=== PATIENT | female | born 1955 | race Caucasian/White ===

== ENCOUNTER → 2019-02-14 | Outpatient (CLI) | payer BC ==
--- NOTE | 2019-02-14 15:11 | CTL ---
EXAMINATION TYPE: CT Low Dose Lung DATE OF EXAM ORDERED: 02/14/2019 HISTORY: Long-term tobacco use. Lung cancer screening CT DLP: 80.[address] CTDI: 2.3 mGy Automated exposure control for dose reduction was used. SCREENING VISIT: Initial study COMPARISON: None TECHNIQUE: Low dose computed tomography scan was performed through the chest at 1 mm thick sections a nd reconstructed images in the coronal plane at [address] DIAGNOSTIC QUALITY: Satisfactory FINDINGS: LUNG NODULES: Present, detailed below: A 6 x 6 mm superior right lower lobe nodule axial image 151 LUNGS: COPD: Severity: Mild to moderate most prominent in the upper lobes. Fibrosis: Severity: Minimal bibasilar. Lymph nodes: None Other findings: None BILATERAL PLEURAL SPACE: Effusion: None Calcification: None Thickening: None Pneumothorax: None HEART: Heart Size: Mildly enlarged Coronary calcification: Moderate to severe 3 vessel Pericardial effusion: None OTHER FINDINGS: Upper abdomen: None Bony thorax: Mild multilevel spurring in the thoracic spine Supraclavicular region: None. Other: Moderate calcified plaque slightly ectatic descending aorta is noted. IMPRESSION: A just over 6 x 6 mm right lower lobe nodule. FOLLOW UP CT CHEST RECOMMENDATION: 3 month follow-up low-dose lung screening CT. CT LUNG RAD: Lung-Rad 4AS Suspicious Correlate clinically for additional cardiac risk factors as moderate to severe 3 vessel coronary mio ry calcification is present.
== END | disposition home or self-care (01) ==
LOC: RADCTMAIN 13:45
PROVIDERS: ATTEND Family Medicine
DX: Z12.2 Encounter for screening for malignant neoplasm of respiratory organs (principal); R91.1 Solitary pulmonary nodule; F17.210 Nicotine dependence, cigarettes, uncomplicated

== ENCOUNTER → 2019-03-06 | Outpatient (CLI) | payer BC ==
--- NOTE | 2019-03-06 16:25 | BD ---
EXAMINATION TYPE: Axial Bone Density DATE OF EXAM: 03/06/2019 COMPARISON: NONE CLINICAL HISTORY: post menopausal Height: 5'3 Weight: 156 FRAX RISK QUESTIONS: Secondary Osteoporosis: Current Tobacco Use: y RISK FACTORS HISTORY OF: Active: n Diet low in dairy products/other sources of calcium: y Postmenopausal woman: y MEDICATIONS: Additional Medications: blood pressure, cholesterol, anxiety Additional History: EXAM MEASUREMENTS: Bone mineral densitometry was performed using the [employer] System. Bone mineral density as measured about the Lumbar spine is: ----- L1-L4(G/cm2): 1.092 T Score Values are as follows: ----- L2: -0.9 ----- L3: 0.0 ----- L4: -1.1 ----- L1-L4: -0.7 Bone mineral density about the R hip (g/cm2): 0.759 Bone mineral density about the L hip (g/cm2): 0.715 T Score values are as follows: -----R Neck: -2.0 -----L Neck: -2.3 -----R Total: -2.0 -----L Total: -1.9 IMPRESSION: Osteopenia (T Score between -2.5 and -1). There is slightly increased risk of fracture and the patient may be considered for treatment. Re-Screen 2-5 years. NOTE: T-SCORE=SD OF THE YOUNG ADULT MEAN.
--- NOTE | 2019-03-07 12:23 | MM ---
Reason for exam: screening (asymptomatic). Last mammogram was performed 2 years and 4 months ago. History: Patient is postmenopausal. Benign excisional biopsy of the right breast, 1992. Took hormonal contraceptives for 5 years beginning at age 20. Physical Findings: A clinical breast exam by your physician is recommended on an annual basis and results should be correlated with mammographic findings. MG Screening Mammo w CAD Bilateral CC and MLO view(s) were taken. Prior study comparison: November 05, 2016, bilateral MG screening mammo w CAD. August 14, 2014, bilateral MG screening mammo w CAD. The breast tissue is heterogeneously dense. This may lower the sensitivity of mammography. Stable benign calcifications. There is chronic nodularity bilaterally. No significant changes when compared with prior studies. ASSESSMENT: Benign, BI-RAD 2 RECOMMENDATION: Routine screening mammogram of both breasts in 1 year.
== END | disposition home or self-care (01) ==
LOC: RADMAMWWP 12:51
PROVIDERS: ATTEND Family Medicine
DX: Z12.31 Encounter for screening mammogram for malignant neoplasm of breast (principal); M85.88 Other specified disorders of bone density and structure, other site; Z78.0 Asymptomatic menopausal state
CPT/HCPCS: 77067; 77080

== ENCOUNTER → 2019-03-16 | Outpatient (CLI) | payer BC ==
[2019-03-16 10:12] LABS: HCT 46.6 % (34.0-46.0); MCH 31.5 pg (25.0-35.0); MCHC 32.2 g/dL (31.0-37.0); MCV 97.9 fL (80.0-100.0); Mean Platelet Volume 7.5; Platelet Count 438 k/uL (150-450); RBC 4.76 m/uL (3.80-5.40); RDW 14.8 % (11.5-15.5); WBC 9.2 k/uL (3.8-10.6)
[2019-03-16 18:41] LABS: Anion Gap 9.2 mmol/L (4.00-12.00); Carbon Dioxide 26.8 mmol/L (21.6-31.8); Potassium 5.2 mmol/L (3.5-5.5)
== END | disposition home or self-care (01) ==
LOC: LABWHC1 09:02
PROVIDERS: ATTEND Internal Medicine Interventional Cardiology
DX: Z01.812 Encounter for preprocedural laboratory examination (principal); I25.10 Atherosclerotic heart disease of native coronary artery without angina pectoris
CPT/HCPCS: 36415; 80051; 82565; 84520; 85027

== ENCOUNTER 2019-03-20 07:58 | Day surgery (SDC) | payer BC ==
[2019-03-16 12:34] VITALS: BMI 28.6
[2019-03-20] MEDS ORDERED: SODIUM CHLORIDE 0.9% 1,000 ML in EMPTY BAG 1 BAG IV ONE (08:11)
[2019-03-20] MEDS ORDERED: ASPIRIN 325 MG TAB PO STA (08:11)
[2019-03-20] MEDS ORDERED: NITROGLYCERIN SL TABS 0.4 MG TAB SUBLINGUAL PRN ×2 (08:11→11:07)
[2019-03-20] MEDS ORDERED: ATORVASTATIN 80 MG TAB PO STA (08:11)
[2019-03-20] MEDS ORDERED: ALPRAZolam 0.5 MG TAB PO PRN (08:11)
[2019-03-20] MEDS: ALPRAZolam 0.25 MG TAB PO PRN ×2 (08:25→22:34)
[2019-03-20] MEDS ORDERED: ALPRAZolam 0.25 MG TAB PO ONE (08:36)
[2019-03-20] MEDS ORDERED: VERAPAMIL 2.5 MG/ML 2 ML AMP ONE (09:00)
[2019-03-20] MEDS ORDERED: LIDOCAINE 1% INJ 10MG/ML (20 ML MDV) ONE (09:00)
[2019-03-20] MEDS ORDERED: HEPARIN SODIUM 1,000 UN/ML (10ML VL) ONE (09:00)
[2019-03-20] MEDS ORDERED: fentaNYL (PF) 50 MCG/ML 2 ML AMP ONE (09:00)
[2019-03-20] MEDS ORDERED: fentaNYL (PF) 50 MCG/ML 2 ML AMP IV ONE (09:08)
[2019-03-20] MEDS ORDERED: MIDAZOLAM (PF) 2 MG/2 ML VIAL IV ONE (09:37)
[2019-03-20] MEDS ORDERED: LIDOCAINE 1% INJ 10MG/ML (20 ML MDV) SQ ONE (09:37)
[2019-03-20] MEDS ORDERED: VERAPAMIL SYRINGE (5 MG/10 ML) INTRAARTER ONE (09:40)
[2019-03-20] MEDS ORDERED: CLOPIDOGREL 75 MG TAB ONE ×3 (09:53)
[2019-03-20] MEDS ORDERED: CLOPIDOGREL 75 MG TAB PO ONE (09:58)
[2019-03-20] MEDS ORDERED: IOPAMIDOL-370 150ML BTL INJ ONE (10:22)
[2019-03-20] MEDS: NITROGLYCERIN 1000MCG/10ML SYRINGE INTRACORON ONE ×2 (10:32→10:44)
[2019-03-20] MEDS ORDERED: IOPAMIDOL-370 100ML BTL INJ ONE (10:45)
[2019-03-20] MEDS ORDERED: ATROPINE SULFATE 0.1 MG/ML 10ML SYRINGE IV PRN (11:07)
[2019-03-20] MEDS ORDERED: MAG HYDROX/AL HYDROX/SIMETH 30 ML CUP PO PRN (11:07)
[2019-03-20] MEDS ORDERED: ZOLPIDEM 5 MG TAB PO PRN (11:07)
[2019-03-20] MEDS ORDERED: RX INFO: IV CONTRAST WAS GIVEN 1 EACH MISC MISCELLANE PRN (11:07)
--- NOTE | 2019-03-20 11:22 | CC ---
CARDIAC CATHETERIZATION REPORT Mrs. Perez is a 63-year-old female with known history of hypertension, hyperlipidemia, chronic tobacco use, who has been complaining of worsening dyspnea on exertion, was found to have significant calcification on CAT scan of the chest and underwent stress test that revealed evidence of inducible ischemia involving the anteroapical wall. In view of that, recommendation was made regarding cardiac catheterization. The procedure as well as the risks and the complications were discussed with the patient who is in full understanding and agreement. PROCEDURE: Patient was brought to label folder in a fasting semi-sedated state after receiving fentanyl and Benadryl and achieving moderate conscious sedated state. Using Xylocaine anesthesia in the Seldinger technique, a 6-Maltese sheath was introduced in the right radial artery. Selective right and left coronary angiography performed using 5-Maltese 3.5 bend right and left Ant catheter. Multiple views of the coronary artery including hemiaxial views obtained. Following that, angioplasty and stenting was performed. Following that, a 5-Maltese tight pigtail catheter was introduced in the left ventricle and pressures were calculated. Following that, catheter and sheath were removed. Hemostasis was obtained with deployment of a TR band. There was no immediate complication patient was returned to room in stable condition. Of note the patient received 4000 units of intravenous heparin as well as intra- arterial verapamil. FINDINGS: FLUOROSCOPY: There is severe calcification involving all the coronary arteries. LEFT MAIN: This is a large-sized vessel bifurcating left circumflex, left anterior descending artery. Left main coronary artery has a 20% plaque distally. LEFT ANTERIOR DESCENDING ARTERY: This vessel gives rise to a very large first diagonal branch, very proximal that has a 40% plaque proximally. The LAD beyond that in the proximal segment has a 20% plaque. After the takeoff of the first septal salesperson burial plots, the vessel is totally occluded with minimal antegrade flow. LEFT CIRCUMFLEX: This is a large-sized vessel, nondominant, giving rise to a large obtuse marginal branch. The left circumflex has tubular lesion proximally of 20% to 30% without any evidence of high-grade stenosis. RIGHT CORONARY ARTERY: This is a large dominant vessel, bifurcating distally PDA and posterolateral segment branches. The mid segment of the right coronary artery has a 30% plaque. The vessel is calcified, gives collaterals to the LAD through the acute marginal branch and the septal salesperson burial plots. LEFT VENTRICULOGRAM: Left ventriculogram was not performed. HEMODYNAMICS: There was no gradient across the aortic valve. The left ventricular end- diastolic pressure was 12 mmHg. CONCLUSION: 1. Calcified coronary arteries. 2. 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 3. Mild disease in the right coronary artery and the left circumflex. RECOMMENDATION: In view of finding anatomy, I recommend to proceed with attempt to angioplasty and stenting of the LAD. The procedure as well as risks and the complications were discussed with the patient who is in full understanding and agreement. MMYONATHAN / MAGGIEN: [id number] /
--- NOTE | 2019-03-20 11:37 | PTCA ---
PERCUTANEOUSTRANS CORORONARY ANGIOGRAPHY Mrs. Perez is a 63-year-old female with a known history of hypertension, hyperlipidemia, chronic tobacco use, who presented with an abnormal myocardial perfusion imaging, underwent cardiac catheterization, was found to have a totally occluded mid LAD. In view of that, recommendation was made regarding angioplasty and stenting. The procedure as well s the risks and the complications were discussed with the patient who is in full understanding and agreement. PROCEDURE: A 6-Malaysian FL 3.5 guiding catheter introduced in the system. After getting cannulating the left main, multiple attempts to advance a 0.014 balanced medium weight J-wire with cross to the proximal LAD were unsuccessful because of the acute angulation. At that point, a SuperCross 45 degree was advanced and that was unsuccessful in helping advancing the wire. The catheter was removed and a SuperCross 120 degree band was advanced with a BMW J-wire and the wire was advanced into the LAD. At that point, the SuperCross catheter was removed and a Corsair catheter was advanced over the BMW. Attempts to advance the BMW through the total occlusion were unsuccessful. At that point that wire was removed and a 0.014 whisper J-wire was advanced and was able to cross the total occlusion. Following that, the Corsair catheter was removed and a 1.2 x 12 mm Trek balloon was advanced and multiple inflations maximum of 10 atmospheres were done. Following that, the balloon was advanced to the distal vessel and the wire was exchanged through the balloon to a 0.014 balanced medium weight J-wire. Subsequently the balloon was removed and a 2.0 x 15 mm Trek balloon was advanced and multiple inflations maximum of 8 atmospheres were done. Following that the balloon was removed and a 2.25 x 33 mm Xience Kaylin stent was deployed, post dilated at 16 atmospheres. After the last inflation, after appropriate wait, the balloon and the guidewire were withdrawn back in the guiding catheter. Images were obtained, repeated. Those images reveal stable successful stenting. At that point, the guiding catheter, the balloon and the guidewire were removed. Left ventricular end-diastolic pressure was calculated. Following that, the sheath and the catheter were removed. Hemostasis was obtained with deployment of a TR band. There was no immediate complication. Patient was returned to her room in stable condition. Of note, the patient had no chest discomfort or significant EKG changes. She received an additional 5000 units of intravenous heparin. Her ACT was monitored and she received oral loading dose of clopidogrel. RESULTS: Successful stenting of a chronically totally occluded LAD with reduction of stenosis from 100% to 0%. RECOMMENDATION: Patient will be continued on aspirin, Plavix, beta rene, NICANOR inhibitor, and statin. The importance of dual antiplatelet treatment was discussed with the patient and her family who are in full understanding and agreement. Duration of procedure is 74 minutes. MMYONATHAN / MAGGIEN: [id number] /
[2019-03-20] MEDS: SODIUM CHLORIDE 0.9% 1,000 ML IV SCH (16:23)
[2019-03-20] MEDS ORDERED: ATORVASTATIN 80 MG TAB PO SCH (21:00)
[2019-03-20] MEDS: METOPROLOL TARTRATE 50 MG TAB PO SCH (21:12)
[2019-03-20] MEDS: CLOBETASOL PROP 0.05% CR 15GM TOPICAL SCH (21:12)
[2019-03-21] MEDS: SODIUM CHLORIDE 0.9% 1,000 ML IV SCH (05:13)
[2019-03-21 05:15] VITALS: BP 126/79
[2019-03-21 06:38] LABS: Anion Gap 6 mmol/L; Blood Urea Nitrogen 12 mg/dL (7-17); Calcium 9.5 mg/dL (8.4-10.2); Carbon Dioxide 27 mmol/L (22-30); Chloride 102 mmol/L (98-107); Glucose 93 mg/dL (74-99); Potassium 4.1 mmol/L (3.5-5.1); Sodium 135 mmol/L (137-145)
[2019-03-21] MEDS: METOPROLOL TARTRATE 50 MG TAB PO SCH (08:15)
[2019-03-21] MEDS ORDERED: CITALOPRAM HYDROBROMIDE 20 MG TAB PO SCH (09:00)
[2019-03-21] MEDS ORDERED: ASPIRIN 81 MG PO SCH (09:00)
[2019-03-21] MEDS ORDERED: LISINOPRIL-HCTZ 20-25 MG 1 EACH TAB PO SCH (09:00)
[2019-03-21] MEDS: CLOBETASOL PROP 0.05% CR 15GM TOPICAL SCH (09:06)
[2019-03-21 09:20] VITALS: PULSE 67; RESP 18; TEMP 98.1
--- NOTE | 2019-03-21 09:20 | PN ---
PROGRESS NOTE Mrs. Perez is a 63-year-old female who has a history of chronic tobacco use, history of hyperlipidemia, had an abnormal myocardial perfusion imaging, underwent cardiac catheterization, was found to have a totally occluded LAD, underwent is recannulization of that vessel and stenting. She is feeling well today. Her breathing is stable. She is denying any chest pain. No dizziness or palpitation. No nausea. She continues to be on aspirin once a day, Plavix 75 mg daily, Lipitor 80 mg daily, lisinopril HCT 20/25 mg daily, metoprolol tartrate 100 mg twice a day. PHYSICAL EXAMINATION: Blood pressure 126/70 with the heart rate in the 60s. LUNGS: Clear. HEART: Regular rate and rhythm. S1, S2. No S3. No rub. ABDOMEN: Soft, nontender. EXTREMITIES: No edema. Right radial pulse intact. LAB DATA: Lab data revealed a BUN and creatinine 12 and 0.63. Potassium 4.1. EKG with no acute changes. IMPRESSION: 1. Status post stenting of the totally occluded left anterior descending artery. 2. Hypertension. 3. Hyperlipidemia. 4. Chronic tobacco use. RECOMMENDATION: Patient should be able to be discharged home today and followed as an outpatient. MMODL / IJN: [id number] /
[2019-03-21] MEDS ORDERED: CLOPIDOGREL 75 MG TAB PO SCH (11:08)
== END 2019-03-21 09:20 | disposition home or self-care (01) ==
LOC: CATHCVL 07:58 → 3SCARD 12:56 → CATHCVL 03-21 09:20
PROVIDERS: ATTEND Internal Medicine Interventional Cardiology
DX: I25.10 Atherosclerotic heart disease of native coronary artery without angina pectoris (principal); I25.84 Coronary atherosclerosis due to calcified coronary lesion; I25.82 Chronic total occlusion of coronary artery; I10 Essential (primary) hypertension; F17.210 Nicotine dependence, cigarettes, uncomplicated; E78.2 Mixed hyperlipidemia; Z79.82 Long term (current) use of aspirin; Z79.899 Other long term (current) drug therapy
CPT/HCPCS: 93458; 80048; C9600; C1769 ×3; C1887 ×3; C1894; C1725 ×2; C1874; J2001; J3010; J1644; Q9967 ×2; J2250

== ENCOUNTER 2019-03-23 20:04 | Inpatient (IN) | payer BC ==
[2019-03-23] MEDS ORDERED: SODIUM CHLORIDE 0.9% 500 ML 500 ML IV STA (20:33)
[2019-03-23] MEDS ORDERED: ONDANSETRON 4 MG/2 ML VIAL IVP STA (20:33)
[2019-03-23 21:44] LABS: Basophils % (A) 0 %; Eosinophils # (A) 0.2 k/uL (0-0.7); Eosinophils % (A) 2 %; HCT 46.5 % (34.0-46.0); HGB 15.6 gm/dL (11.4-16.0); Lymphocytes # (A) 1.1 k/uL (1.0-4.8); Lymphocytes % (A) 10 %; MCH 30.8 pg (25.0-35.0); MCHC 33.6 g/dL (31.0-37.0); Mean Platelet Volume 7.1; Monocytes # (A) 0.5 k/uL (0-1.0); Monocytes % (A) 4 %; Neutrophils # (A) 9.8 k/uL (1.3-7.7); Neutrophils % (A) 83 %; Platelet Count 395 k/uL (150-450); RBC 5.06 m/uL (3.80-5.40); RDW 13.8 % (11.5-15.5); WBC 11.7 k/uL (3.8-10.6)
[2019-03-23 21:46] LABS: MCV 91.8 fL (80.0-100.0)
[2019-03-23 21:59] LABS: ALT 24 U/L (9-52); AST 35 U/L (14-36); Albumin 4.5 g/dL (3.5-5.0); Alkaline Phosphatase 108 U/L (38-126); Amylase 61 U/L (30-110); Anion Gap 11 mmol/L; Blood Urea Nitrogen 7 mg/dL (7-17); Calcium 9.5 mg/dL (8.4-10.2); Carbon Dioxide 27 mmol/L (22-30); Chloride 81 mmol/L (98-107); Glucose 109 mg/dL (74-99); Lipase 35 U/L (23-300); Potassium 3.9 mmol/L (3.5-5.1); Total Bilirubin 0.9 mg/dL (0.2-1.3); Total Protein 7.1 g/dL (6.3-8.2)
[2019-03-23 22:06] LABS: Sodium 119 mmol/L (137-145)
--- NOTE | 2019-03-23 22:16 | ED ---
General Adult HPI - General Source: patient Mode of arrival: ambulatory Limitations: no limitations <Krystina Marin - Last Filed: 03/24/19 01:22> <Miugel Izaguirre - Last Filed: 03/25/19 08:22> - General Chief complaint: Nausea/Vomiting/Diarrhea Stated complaint: Weakness Time Seen by Provider: 03/23/19 20:15 - History of Present Illness Initial comments: 63-year-old female patient presents to the emergency department today for evaluation of nausea and vomiting. Patient had a stent placed in her LAD 3 days ago. Patient states she has been feeling unwell since the procedure. States that she has had nausea. States she did start vomiting today. States that she has also felt generalized weakness. Patient did start new medications including Plavix, aspirin, and atorvastatin. Patient denies any chest pain or trouble breathing. She denies any abdominal pain, constipation, or diarrhea. She denies any numbness or tingling to her extremities. Denies any dizziness. Patient denies any recent rash, fever, chills, back pain, numbness, tingling, dizziness, weakness, hematuria, dysuria, urinary urgency, urinary frequency, headache, visual changes, or any other complaints. (Krystina Marin) - Related Data Home Medications Medication Instructions Recorded Confirmed Aspirin 81 mg PO DAILY 09/09/14 03/23/19 Citalopram Hydrobromide [CeleXA] 20 mg PO QAM 09/09/14 03/23/19 Metoprolol Tartrate [Lopressor] 100 mg PO BID 09/09/14 03/23/19 Clobetasol Propionate [Temovate 1 applic TOPICAL BID 03/16/19 03/23/19 0.05% Cream] Lisinopril-Hctz 20-25 mg 1 tab PO DAILY 03/20/19 03/23/19 [Zestoretic 20-25] Previous Rx's Medication Instructions Recorded Atorvastatin [Lipitor] 80 mg PO HS #90 tab 03/21/19 Clopidogrel [Plavix] 75 mg PO DAILY #90 tab 03/21/19 Nitroglycerin Sl Tabs [Nitrostat] 0.4 mg SUBLINGUAL Q5M PRN #25 tab 03/21/19 Allergies Allergy/AdvReac Type Severity Reaction Status Date / Time No Known Allergies Allergy Verified 03/23/19 20:18 Review of Systems ROS Other: All systems not noted in ROS Statement are negative. <Krystina Marin - Last Filed: 03/24/19 01:22> ROS Other: All systems not noted in ROS Statement are negative. <Miguel Izaguirre - Last Filed: 03/25/19 08:22> ROS Statement: Those systems with pertinent positive or pertinent negative responses have been documented in the HPI. Past Medical History Past Medical History: Hyperlipidemia, Hypertension, Skin Disorder Additional Past Medical History / Comment(s): postive stress test. LICHEN SCLEROSIS History of Any Multi-Drug Resistant Organisms: None Reported Past Surgical History: Adenoidectomy, Bladder Surgery, Heart Catheterization With Stent, Tonsillectomy Additional Past Surgical History / Comment(s): EYE SX A CHILD. BENIGN LUMP REMOVED FROM RIGHT SIDE OF NECK. BENIGN RT BREAST MASS REMOVED. COLONOSCOPY Past Anesthesia/Blood Transfusion Reactions: No Reported Reaction Past Psychological History: Anxiety Smoking Status: Current every day smoker Past Alcohol Use History: Rare Past Drug Use History: None Reported - Past Family History Father Family Medical History: Cancer <Krystina Marin - Last Filed: 03/24/19 01:22> General Exam Limitations: no limitations General appearance: alert, in no apparent distress, other (This is a well- developed, well-nourished adult female patient in no acute distress. Vital sign s upon presentation are pulse 84, respirations 20, blood pressure 175/81, pulse ox 95% on room air.) Eye exam: Present: normal appearance, PERRL, EOMI. Absent: scleral icterus, conjunctival injection, periorbital swelling ENT exam: Present: normal exam, normal oropharynx, mucous membranes moist Respiratory exam: Present: normal lung sounds bilaterally. Absent: respiratory distress, wheezes, rales, rhonchi, stridor Cardiovascular Exam: Present: regular rate, normal rhythm, normal heart sounds. Absent: systolic murmur, diastolic murmur, rubs, gallop, clicks GI/Abdominal exam: Present: soft, normal bowel sounds. Absent: distended, tenderness, guarding, rebound, rigid Neurological exam: Present: alert, oriented X3, CN II-XII intact, other ( Strength in all 4 extremities is 5/5.) Psychiatric exam: Present: normal affect, normal mood Skin exam: Present: warm, dry, intact, normal color. Absent: rash <Krystina Marin - Last Filed: 03/24/19 01:22> Course Vital Signs 03/23/19 03/23/19 03/23/19 20:06 21:11 22:54 Temperature 98.6 F Pulse Rate 84 66 Respiratory 20 20 18 Rate Blood Pressure 175/81 167/86 O2 Sat by Pulse 95 98 96 Oximetry 03/23/19 03/24/19 23:46 01:12 Temperature Pulse Rate 72 Respiratory 18 Rate Blood Pressure 147/79 112/68 O2 Sat by Pulse 99 Oximetry EKG Findings - EKG Comments: EKG Findings:: EKG obtained at 2146 shows normal sinus rhythm with a ventricular rate of 66, NC interval 168, QRS duration 76, QT 414, QTC 434. No evidence of ST elevation or depression. <Krystina Marin - Last Filed: 03/24/19 01:22> Medical Decision Making - Lab Data Result diagrams: 03/23/19 21:30 03/23/19 23:03 <Krystina Marin - Last Filed: 03/24/19 01:22> - Lab Data Result diagrams: 03/23/19 21:30 03/24/19 15:59 <Miguel Izaguirre - Last Filed: 03/25/19 08:22> - Medical Decision Making 63-year-old female patient presents to the emergency department today for evaluation of vomiting and weakness. Physical examination is relatively unremarkable. She is neurologically intact with no focal deficits. Abdomen is soft and nontender. Labs reviewed and did reveal sodium of 119. This was confirmed with a repeat test with a result of 120. Patient does admit to use of Lisinopril/Hctz. Denies any excessive water intake. Patient denies history of low sodium. She will be admitted for sodium correction. Neuro checks will be ordered. Troponin is elevated, she did have the stent placed on Tuesday, we will perform serial trops to rule out acute event. EKG was unremarkable. Patient was informed of all results and plan. She is agreeable. (Krystina Marin) I saw this patient in conjunction with the physician retail event assistant. I performed independent history and physical exam. Agree with case management. (Jb Izaguirre ) - Lab Data Lab Results 03/23/19 03/23/19 03/23/19 Range/Units 21:30 21:30 21:30 WBC 11.7 H (3.8-10.6) k/uL RBC 5.06 (3.80-5.40) m/uL Hgb 15.6 (11.4-16.0) gm/dL Hct 46.5 H (34.0-46.0) % MCV 91.8 D (80.0-100.0) fL MCH 30.8 (25.0-35.0) pg MCHC 33.6 (31.0-37.0) g/dL RDW 13.8 (11.5-15.5) % Plt Count 395 (150-450) k/uL Neutrophils % 83 % Lymphocytes % 10 % Monocytes % 4 % Eosinophils % 2 % Basophils % 0 % Neutrophils # 9.8 H (1.3-7.7) k/uL Lymphocytes # 1.1 (1.0-4.8) k/uL Monocytes # 0.5 (0-1.0) k/uL Eosinophils # 0.2 (0-0.7) k/uL Basophils # 0.0 (0-0.2) k/uL Sodium 119 L* (137-145) mmol/L Potassium 3.9 (3.5-5.1) mmol/L Chloride 81 L (98-107) mmol/L Carbon Dioxide 27 (22-30) mmol/L Anion Gap 11 mmol/L BUN 7 (7-17) mg/dL Creatinine 0.54 (0.52-1.04) mg/dL Est GFR (CKD-EPI)AfAm >90 (>60 ml/min/1.73 sqM) Est GFR (CKD-EPI)NonAf >90 (>60 ml/min/1.73 sqM) Glucose 109 H (74-99) mg/dL Uric Acid (3.7-7.4) mg/dL Calcium 9.5 (8.4-10.2) mg/dL Total Bilirubin 0.9 (0.2-1.3) mg/dL AST 35 (14-36) U/L ALT 24 (9-52) U/L Alkaline Phosphatase 108 (38-126) U/L Troponin I 0.070 H* (0.000-0.034) ng/mL Total Protein 7.1 (6.3-8.2) g/dL Albumin 4.5 (3.5-5.0) g/dL Amylase 61 (30-110) U/L Lipase 35 (23-300) U/L TSH (0.465-4.680) mIU/L Cortisol ug/dL Urine Color Urine Appearance (Clear) Urine pH (5.0-8.0) Ur Specific [place] (1.001-1.035) Urine Protein (Negative) Urine Glucose (UA) (Negative) Urine Ketones (Negative) Urine Blood (Negative) Urine Nitrite (Negative) Urine Bilirubin (Negative) Urine Urobilinogen (<2.0) mg/dL Ur Leukocyte Esterase (Negative) Urine Osmolality (50-1400) mosm/kg Ur Random Creatinine mg/dL Ur Random Urea Nitrogn mg/dL 03/23/19 03/23/19 03/23/19 Range/Units 23:03 23:03 23:55 WBC (3.8-10.6) k/uL RBC (3.80-5.40) m/uL Hgb (11.4-16.0) gm/dL Hct (34.0-46.0) % MCV (80.0-100.0) fL MCH (25.0-35.0) pg MCHC (31.0-37.0) g/dL RDW (11.5-15.5) % Plt Count (150-450) k/uL Neutrophils % % Lymphocytes % % Monocytes % % Eosinophils % % Basophils % % Neutrophils # (1.3-7.7) k/uL Lymphocytes # (1.0-4.8) k/uL Monocytes # (0-1.0) k/uL Eosinophils # (0-0.7) k/uL Basophils # (0-0.2) k/uL Sodium 120 L (137-145) mmol/L Potassium 3.8 (3.5-5.1) mmol/L Chloride 86 L (98-107) mmol/L Carbon Dioxide 23 (22-30) mmol/L Anion Gap 11 mmol/L BUN 7 (7-17) mg/dL Creatinine 0.47 L (0.52-1.04) mg/dL Est GFR (CKD-EPI)AfAm >90 (>60 ml/min/1.73 sqM) Est GFR (CKD-EPI)NonAf >90 (>60 ml/min/1.73 sqM) Glucose 101 H (74-99) mg/dL Uric Acid 3.3 L (3.7-7.4) mg/dL Calcium 9.1 (8.4-10.2) mg/dL Total Bilirubin 0.8 (0.2-1.3) mg/dL AST 33 (14-36) U/L ALT 24 (9-52) U/L Alkaline Phosphatase 104 (38-126) U/L Troponin I (0.000-0.034) ng/mL Total Protein 6.7 (6.3-8.2) g/dL Albumin 4.2 (3.5-5.0) g/dL Amylase (30-110) U/L Lipase (23-300) U/L TSH 3.310 (0.465-4.680) mIU/L Cortisol 12 ug/dL Urine Color Light Yellow Urine Appearance Clear (Clear) Urine pH 7.0 (5.0-8.0) Ur Specific [place] 1.006 (1.001-1.035) Urine Protein Negative (Negative) Urine Glucose (UA) Negative (Negative) Urine Ketones Negative (Negative) Urine Blood Negative (Negative) Urine Nitrite Negative (Negative) Urine Bilirubin Negative (Negative) Urine Urobilinogen <2.0 (<2.0) mg/dL Ur Leukocyte Esterase Negative (Negative) Urine Osmolality (50-1400) mosm/kg Ur Random Creatinine mg/dL Ur Random Urea Nitrogn mg/dL 03/23/19 03/23/19 Range/Units 23:55 23:55 WBC (3.8-10.6) k/uL RBC (3.80-5.40) m/uL Hgb (11.4-16.0) gm/dL Hct (34.0-46.0) % MCV (80.0-100.0) fL MCH (25.0-35.0) pg MCHC (31.0-37.0) g/dL RDW (11.5-15.5) % Plt Count (150-450) k/uL Neutrophils % % Lymphocytes % % Monocytes % % Eosinophils % % Basophils % % Neutrophils # (1.3-7.7) k/uL Lymphocytes # (1.0-4.8) k/uL Monocytes # (0-1.0) k/uL Eosinophils # (0-0.7) k/uL Basophils # (0-0.2) k/uL Sodium (137-145) mmol/L Potassium (3.5-5.1) mmol/L Chloride (98-107) mmol/L Carbon Dioxide (22-30) mmol/L Anion Gap mmol/L BUN (7-17) mg/dL Creatinine (0.52-1.04) mg/dL Est GFR (CKD-EPI)AfAm (>60 ml/min/1.73 sqM) Est GFR (CKD-EPI)NonAf (>60 ml/min/1.73 sqM) Glucose (74-99) mg/dL Uric Acid (3.7-7.4) mg/dL Calcium (8.4-10.2) mg/dL Total Bilirubin (0.2-1.3) mg/dL AST (14-36) U/L ALT (9-52) U/L Alkaline Phosphatase (38-126) U/L Troponin I (0.000-0.034) ng/mL Total Protein (6.3-8.2) g/dL Albumin (3.5-5.0) g/dL Amylase (30-110) U/L Lipase (23-300) U/L TSH (0.465-4.680) mIU/L Cortisol ug/dL Urine Color Urine Appearance (Clear) Urine pH (5.0-8.0) Ur Specific [place] (1.001-1.035) Urine Protein (Negative) Urine Glucose (UA) (Negative) Urine Ketones (Negative) Urine Blood (Negative) Urine Nitrite (Negative) Urine Bilirubin (Negative) Urine Urobilinogen (<2.0) mg/dL Ur Leukocyte Esterase (Negative) Urine Osmolality 207 (50-1400) mosm/kg Ur Random Creatinine 32.5 mg/dL Ur Random Urea Nitrogn 178.0 mg/dL Disposition Decision to Admit Reason: Admit from EC Decision Date: 03/24/19 Decision Time: 00:59 <Krystina Marin - Last Filed: 03/24/19 01:22> <Miguel Izaguirre - Last Filed: 03/25/19 08:22> Clinical Impression: Hyponatremia, Nausea Disposition: ADMITTED IP TO THIS [facility] Condition: Serious
[2019-03-23 23:40] LABS: ALT 24 U/L (9-52); AST 33 U/L (14-36); Albumin 4.2 g/dL (3.5-5.0); Alkaline Phosphatase 104 U/L (38-126); Anion Gap 11 mmol/L; Blood Urea Nitrogen 7 mg/dL (7-17); Calcium 9.1 mg/dL (8.4-10.2); Carbon Dioxide 23 mmol/L (22-30); Chloride 86 mmol/L (98-107); Glucose 101 mg/dL (74-99); Potassium 3.8 mmol/L (3.5-5.1); Sodium 120 mmol/L (137-145); Total Bilirubin 0.8 mg/dL (0.2-1.3); Total Protein 6.7 g/dL (6.3-8.2)
[2019-03-24 00:02] LABS: Appearance,Urine Clear (Clear); Bilirubin,Urine Negative (Negative); Blood,Urine Negative (Negative); Color,Urine Light Yellow; Glucose,Urine (UA) Negative (Negative); Ketones,Urine Negative (Negative); Leukocyte Esterase,Urine Negative (Negative); Nitrite,Urine Negative (Negative); Protein,Urine Negative (Negative); Specific Gravity,Urine 1.006 (1.001-1.035); Urobilinogen,Urine <2.0 mg/dL (<2.0)
[2019-03-24] MEDS ORDERED: NALOXONE 0.4 MG/ML 1 ML VIAL IV PRN (00:38)
[2019-03-24 01:09] LABS: Uric Acid 3.3 mg/dL (3.7-7.4)
[2019-03-24] MEDS: SODIUM CHLORIDE 0.9% 1,000 ML IV SCH ×6 (01:09→21:46)
[2019-03-24] MEDS ORDERED: ONDANSETRON 4 MG/2 ML VIAL IVP PRN (01:20)
[2019-03-24 01:27] LABS: Creatinine,Urine Random 32.5 mg/dL
[2019-03-24 16:41] LABS: Anion Gap 4 mmol/L; Blood Urea Nitrogen 5 mg/dL (7-17); Carbon Dioxide 26 mmol/L (22-30); Chloride 105 mmol/L (98-107); Glucose 91 mg/dL (74-99); Potassium 4.7 mmol/L (3.5-5.1); Sodium 135 mmol/L (137-145)
[2019-03-24] MEDS: CLOPIDOGREL 75 MG TAB PO SCH (18:05)
[2019-03-24] MEDS: LISINOPRIL 10 MG TAB PO SCH ×2 (18:17→20:09)
--- NOTE | 2019-03-24 19:51 | CONS ---
CONSULTATION Mrs. Perez is a 63-year-old female who presented with symptoms of nausea and vomiting. She follows with Dr. Kimber Salinas and was recently seen in our office because of abnormal myocardial perfusion imaging and dyspnea on exertion. She underwent cardiac catheterization and was found to have a totally occluded LAD and wall underwent successful stenting of that vessel on March 20. She went home and started to feel nausea and yesterday was worse and because of that came into the emergency room. She had no chest pain. She feels better breathing roca since the procedure. She has no dizziness or palpitation. No syncope. No PND nor orthopnea. She had a prior history of heavy tobacco use, but she has stopped right after the cardiac catheterization. She was noted to be hyponatremic on presentation. Her coronary risk factors are remarkable for the prior history of smoking. She has a history of hypertension and hyperlipidemia. She is nondiabetic. MEDICATION: At the time of admission included metoprolol tartrate 100 mg twice a day, lisinopril HCT 20-25 mg daily, Plavix 75 mg daily, Celexa, Lipitor 80 mg daily, aspirin once a day. REVIEW OF SYSTEMS: RESPIRATORY system: She had a prior history of smoking and dyspnea on exertion. GI system: She has nausea but no GI bleeding. No peptic ulcer disease. system: No dysuria or hematuria. NERVOUS SYSTEM: No stroke or seizure. PHYSICAL EXAMINATION: She is a 63-year-old female, alert, oriented, in no apparent distress. Blood pressure 121/70 with a heart rate in the 70s. HEAD: Normocephalic. EYES: Sclerae anicteric. NECK: Good carotid upstroke. No bruit. No jugular venous distention. LUNGS was mild decrease in breath sounds. No wheezes. HEART: Regular rate and rhythm, S1, S2. No S3. No gallop or rub. ABDOMEN: Soft, nontender. Positive bowel sounds. No organomegaly. EXTREMITIES: No edema. Intact distal pulses. Right radial pulse intact. Ecchymosis noted. LAB DATA: Troponin 0.07, 0.077, 0.075. Sodium of 119 yesterday, 120 today, it was 135 on doing the cardiac catheterization. Today her hemoglobin is 15.6. Her TSH 3.3. Her cortisol level is 12. Her EKG shows a sinus mechanism, normal axis and intervals, anteroseptal myocardial infarction. IMPRESSION: 1. Nausea of unclear etiology. Patient's new medication included Plavix that was started as well as the Lipitor that was adjusted. Neither one of them are known to cause hyponatremia. Some of the nausea could be related to the fact that the patient has stopped smoking abruptly. 2. Hyponatremia of unclear etiology could be exacerbated by the nausea and decreased oral intake. 3. History of coronary artery disease. 4. History of smoking. Patient stopped 3 days ago. 5. Hypertension. 6. Hyperlipidemia. RECOMMENDATION: I will DC her hydrochlorothiazide from her medication. Continue rest of medical regimen. The patient has received Zofran and is feeling much better. We will follow her sodium tomorrow. Continue on the present therapy and if she is stable, hopefully, she should be able to be discharged home soon. Thank you for this consult. We will follow with you. LEE ANN / LYN: [id number] /
[2019-03-24] MEDS: METOPROLOL TARTRATE 50 MG TAB PO SCH (20:09)
[2019-03-24] MEDS ORDERED: ATORVASTATIN 80 MG TAB PO SCH (21:00)
--- NOTE | 2019-03-24 23:03 | P.HPIM ---
History of Present Illness H&P Date: 03/24/19 Chief Complaint: Nausea and vomiting Ms. Perez is a 63-year-old female with a past medical history of hypertension, hyperlipidemia, recently had a stent placed in her LAD 3 days back coming in with a chief complaint of nausea and vomiting. Patient states that since having the procedure she has been having dry heaves and was nauseous 2. She was eating but not drinking a lot of fluids. Patient states that last night she threw up couple of times. She also reports having generalized weakness. Patient denies having any chest pain or difficulty in breathing. She denies having any abdominal pain, constipation or diarrhea. Patient denies having any burning sensation while peeling. No hematuria or dysuria. Patient denies having any headaches, visual disturbances or hearing issues. Patient states that she quit smoking since having the stent placed. She has b een compliant with her medications and has been taking aspirin, Plavix and atorvastatin. In the ER patient's blood pressure systolic was high and her labs showed that her sodium was low at 119. She also had elevation of her troponins at 0.070, 0.77 and 0.075. So she is being admitted for further workup and management. Review of Systems REVIEW OF SYSTEMS: PSYCH: No history of anxiety or depression NEURO:No c/o weakness of the extremties, No facial droop, No speech abnormalities. VASCULAR: Peripheral nervous system within the normal limits no edema HEMATOLOGIC: No history of easy bleeding and bruising . No recent infections . RESPIRATORY: No cough, No SOB, No chest discomfort. IMMUNE: No recent infections INTEGUMENT: no rashes OPHTHALMOLOGIC: No blurry vision and no eye discharge : No dysuria or hematuria BACK SEAM STITCHER: No bleeding PV CARDIAC: No chest pain , shortness of breath , paroxysmal nocturnal dyspnea MUSCULOSKELETAL : No Aches or pains in the joints or muscles. GI: As per HPI Past Medical History Past Medical History: Hyperlipidemia, Hypertension, Skin Disorder Additional Past Medical History / Comment(s): postive stress test. LICHEN SCLEROSIS History of Any Multi-Drug Resistant Organisms: None Reported Past Surgical History: Adenoidectomy, Bladder Surgery, Heart Catheterization With Stent, Tonsillectomy Additional Past Surgical History / Comment(s): EYE SX A CHILD. BENIGN LUMP REMOVED FROM RIGHT SIDE OF NECK. BENIGN RT BREAST MASS REMOVED. COLONOSCOPY Past Anesthesia/Blood Transfusion Reactions: No Reported Reaction Date of Last Stent Placement:: 03/20/19 Past Psychological History: Anxiety Smoking Status: Former smoker Past Alcohol Use History: Rare Additional Past Alcohol Use History / Comment(s): SMOKES < 1PPD SINCE AGE 23- states quit smoking 03/19/19 Past Drug Use History: None Reported - Past Family History Father Family Medical History: Cancer Medications and Allergies Home Medications Medication Instructions Recorded Confirmed Type Aspirin 81 mg PO DAILY 09/09/14 03/23/19 History Citalopram Hydrobromide [CeleXA] 20 mg PO QAM 09/09/14 03/23/19 History Metoprolol Tartrate [Lopressor] 100 mg PO BID 09/09/14 03/23/19 History Clobetasol Propionate [Temovate 1 applic TOPICAL BID 03/16/19 03/23/19 History 0.05% Cream] Lisinopril-Hctz 20-25 mg 1 tab PO DAILY 03/20/19 03/23/19 History [Zestoretic 20-25] Atorvastatin [Lipitor] 80 mg PO HS #90 tab 03/21/19 03/23/19 Rx Clopidogrel [Plavix] 75 mg PO DAILY #90 tab 03/21/19 03/23/19 Rx Nitroglycerin Sl Tabs [Nitrostat] 0.4 mg SUBLINGUAL Q5M PRN #25 tab 03/21/19 03/23/19 Rx Allergies Allergy/AdvReac Type Severity Reaction Status Date / Time No Known Allergies Allergy Verified 03/23/19 20:18 Physical Exam Vitals: Vital Signs Temp Pulse Pulse Resp BP BP Pulse Ox 03/24/19 14:46 98.5 F 79 15 148/77 95 03/24/19 07:29 97.2 F L 72 15 121/72 96 03/24/19 01:37 98.3 F 70 18 142/76 92 L 03/24/19 01:12 72 18 112/68 99 03/23/19 23:46 147/79 03/23/19 22:54 98.6 F 66 18 167/86 96 03/23/19 21:11 20 98 03/23/19 20:06 84 20 175/81 95 Intake and Output 03/24/19 03/24/19 03/24/19 06:59 14:59 22:59 Intake Total 1575 3160 Balance 1575 3160 Intake: Intake, IV Titration 157 2800 Amount Sodium Chloride 0.9% 11574 2800 000 ml @ 350 mls/hr IV . Q2H52M [facility] Rx#:[id number] Oral 360 Other: Voiding Method Toilet # Voids 2 General appearance: Appears to be in no acute distress, comfortably lying in bed. Eye exam: Pupils equal and reactive to light. No conjunctival pallor. No icterus ENT exam: oral mucosa is moist Respiratory exam: Present: normal lung sounds bilaterally. Absent: respiratory distress, wheezes, rales, rhonchi, stridor Cardiovascular Exam: Present: regular rate, normal rhythm, normal heart sounds. Absent: systolic murmur, diastolic murmur, rubs, gallop, clicks GI/Abdominal exam: Abdomen is soft nontender. Normal bowel sounds. No organomegaly. Neurological exam: Present: alert, oriented X3, no focal neurological deficits. Psychiatric exam: Present: normal affect, normal mood Skin exam: Patient has bruises over bilateral flexor surfaces, secondary to blood draws. Results CBC & Chem 7: 03/23/19 21:30 03/23/19 23:03 Labs: Abnormal Lab Results - Last 24 Hours (Table) 03/23/19 03/23/19 03/23/19 Range/Units 21:30 21:30 21:30 WBC 11.7 H (3.8-10.6) k/uL Hct 46.5 H (34.0-46.0) % Neutrophils # 9.8 H (1.3-7.7) k/uL Sodium 119 L* (137-145) mmol/L Chloride 81 L (98-107) mmol/L Creatinine (0.52-1.04) mg/dL Glucose 109 H (74-99) mg/dL Uric Acid (3.7-7.4) mg/dL Troponin I 0.070 H* (0.000-0.034) ng/mL 03/23/19 03/23/19 03/24/19 Range/Units 23:03 23:03 04:17 WBC (3.8-10.6) k/uL Hct (34.0-46.0) % Neutrophils # (1.3-7.7) k/uL Sodium 120 L (137-145) mmol/L Chloride 86 L (98-107) mmol/L Creatinine 0.47 L (0.52-1.04) mg/dL Glucose 101 H (74-99) mg/dL Uric Acid 3.3 L (3.7-7.4) mg/dL Troponin I 0.077 H* (0.000-0.034) ng/mL 03/24/19 Range/Units 08:50 WBC (3.8-10.6) k/uL Hct (34.0-46.0) % Neutrophils # (1.3-7.7) k/uL Sodium (137-145) mmol/L Chloride (98-107) mmol/L Creatinine (0.52-1.04) mg/dL Glucose (74-99) mg/dL Uric Acid (3.7-7.4) mg/dL Troponin I 0.075 H* (0.000-0.034) ng/mL Thrombosis Risk Factor Assmnt - Choose All That Apply Any of the Below Risk Factors Present?: Yes Each Factor Represents 1 point: Age 41-60 years, Obesity (BMI >25) Thrombosis Risk Factor Assessment Total Risk Factor Score: 2 Thrombosis Risk Factor Assessment Level: Low Risk Assessment and Plan Assessment: ASSESSMENT Hyponatremia-hypovolemic hyponatremia secondary to nausea and vomiting Coronary artery disease - status post Stenting of a totally occluded LAD 3 days back Hypertension Hyperlipidemia Nicotine dependence PLAN: In the ER patient was given IV fluids and Zofran. Patient's symptoms of nausea and vomiting improved. She states she was able to eat her lunch this afternoon. Cardiology Dr. Bennett evaluated the patient. Will repeat lites to see the trend of her sodium. Patient will be restarted on all her cardiac meds. Further recommendations to follow depending on the progress of the patient.
[2019-03-25 08:14] VITALS: BP 134/68; PULSE 62; RESP 14; TEMP 97.8
[2019-03-25] MEDS: LISINOPRIL 10 MG TAB PO SCH (08:17)
[2019-03-25] MEDS: CLOPIDOGREL 75 MG TAB PO SCH (08:17)
[2019-03-25] MEDS: SODIUM CHLORIDE 0.9% 1,000 ML IV SCH (08:18)
[2019-03-25] MEDS: METOPROLOL TARTRATE 50 MG TAB PO SCH (08:18)
[2019-03-25 08:39] LABS: ALT 26 U/L (9-52); AST 31 U/L (14-36); Albumin 3.4 g/dL (3.5-5.0); Alkaline Phosphatase 74 U/L (38-126); Anion Gap 3 mmol/L; Blood Urea Nitrogen 6 mg/dL (7-17); Calcium 8.8 mg/dL (8.4-10.2); Carbon Dioxide 25 mmol/L (22-30); Chloride 110 mmol/L (98-107); Glucose 78 mg/dL (74-99); Potassium 3.8 mmol/L (3.5-5.1); Sodium 138 mmol/L (137-145); Total Bilirubin 0.7 mg/dL (0.2-1.3); Total Protein 5.9 g/dL (6.3-8.2)
[2019-03-25] MEDS ORDERED: ASPIRIN 81 MG PO SCH (09:00)
--- NOTE | 2019-03-25 12:14 | P.DS ---
Providers Date of admission: 03/24/19 00:10 Expected date of discharge: 03/25/19 Attending physician: Sanjuanita Craft Consults: 03/24/19 17:21 Consult Physician Routine Consulting Provider: Romulo Bennett Consult Reason/Comments: recent hearth cath Do you want consulting provider notified?: Yes Primary care physician: Kimber Miriam Hospital Course: Ms. Perez is a 63-year-old female with a past medical history of hypertension, hyperlipidemia, recently had a stent placed in her LAD 3 days back coming in with a chief complaint of nausea and vomiting. Patient states that since having the procedure she has been having dry heaves and was nauseous. She was eating but not drinking a lot of fluids. Patient threw up only once per for coming to the hospital. At the time of admission patient was found to have a sodium of 119. She was given IV fluids after which her sodium trended up. She was treated symptomatically for her nausea and vomiting with Zofran. Patient was tolerating food since yesterday afternoon. This morning patient's sodium is back to 135. Patient states that she is ready to go home. She is been cleared by cardiology. Only change made in her medication is that she has been discontinued off of hydrochlorothiazide. Vital Signs - 24 hr 03/24/19 03/24/19 03/25/19 14:46 19:50 01:22 Temperature 98.5 F 98.5 F 98.5 F Pulse Rate [ 79 80 81 Pulse Oximetery ] Respiratory 15 17 17 Rate Blood Pressure 148/77 121/77 120/75 [Left Arm] O2 Sat by Pulse 95 95 98 Oximetry 03/25/19 07:30 Temperature 97.8 F Pulse Rate [ 62 Pulse Oximetery ] Respiratory 14 Rate Blood Pressure 134/68 [Left Arm] O2 Sat by Pulse 95 Oximetry General appearance: Appears to be in no acute distress, comfortably lying in bed. Eye exam: Pupils equal and reactive to light. No conjunctival pallor. No icterus ENT exam: oral mucosa is moist Respiratory exam: Present: normal lung sounds bilaterally. Absent: respiratory distress, wheezes, rales, rhonchi, stridor Cardiovascular Exam: Present: regular rate, normal rhythm, normal heart sounds. Absent: systolic murmur, diastolic murmur, rubs, gallop, clicks GI/Abdominal exam: Abdomen is soft nontender. Normal bowel sounds. No organomegaly. Neurological exam: Present: alert, oriented X3, no focal neurological deficits. Psychiatric exam: Present: normal affect, normal mood Skin exam: Patient has bruises over bilateral flexor surfaces, secondary to blood draws. Diabetes panel 03/24/19 03/25/19 Range/Units 15:59 08:07 Sodium 135 L 138 (137-145) mmol/L Potassium 4.7 3.8 (3.5-5.1) mmol/L Chloride 105 110 H (98-107) mmol/L Carbon Dioxide 26 25 (22-30) mmol/L BUN 5 L 6 L (7-17) mg/dL Creatinine 0.52 0.56 (0.52-1.04) mg/dL Glucose 91 78 (74-99) mg/dL Calcium 9.0 8.8 (8.4-10.2) mg/dL AST 31 (14-36) U/L ALT 26 (9-52) U/L Alkaline Phosphatase 74 (38-126) U/L Total Protein 5.9 L (6.3-8.2) g/dL Albumin 3.4 L (3.5-5.0) g/dL Calcium panel 03/24/19 03/25/19 Range/Units 15:59 08:07 Calcium 9.0 8.8 (8.4-10.2) mg/dL Albumin 3.4 L (3.5-5.0) g/dL Pituitary panel 03/24/19 03/25/19 Range/Units 15:59 08:07 Sodium 135 L 138 (137-145) mmol/L Potassium 4.7 3.8 (3.5-5.1) mmol/L Chloride 105 110 H (98-107) mmol/L Carbon Dioxide 26 25 (22-30) mmol/L BUN 5 L 6 L (7-17) mg/dL Creatinine 0.52 0.56 (0.52-1.04) mg/dL Glucose 91 78 (74-99) mg/dL Calcium 9.0 8.8 (8.4-10.2) mg/dL Adrenal panel 03/24/19 03/25/19 Range/Units 15:59 08:07 Sodium 135 L 138 (137-145) mmol/L Potassium 4.7 3.8 (3.5-5.1) mmol/L Chloride 105 110 H (98-107) mmol/L Carbon Dioxide 26 25 (22-30) mmol/L BUN 5 L 6 L (7-17) mg/dL Creatinine 0.52 0.56 (0.52-1.04) mg/dL Glucose 91 78 (74-99) mg/dL Calcium 9.0 8.8 (8.4-10.2) mg/dL Total Bilirubin 0.7 (0.2-1.3) mg/dL AST 31 (14-36) U/L ALT 26 (9-52) U/L Alkaline Phosphatase 74 (38-126) U/L Total Protein 5.9 L (6.3-8.2) g/dL Albumin 3.4 L (3.5-5.0) g/dL DISCHARGE DIAGNOSIS Hyponatremia-hypovolemic hyponatremia secondary to nausea and vomiting - resolved Coronary artery disease - status post Stenting of a totally occluded LAD 3 days back Hypertension Hyperlipidemia Nicotine dependence PLAN: Patient's sodium is back to normal. She has been cleared by cardiology to be discharged home today. Only change in the medication made was her hydrochlorothiazide has been discontinued. A new prescription for lisinopril 10 mg twice a day has been sent to her pharmacy. Patient is made aware of these changes. She is being discharged home in a stable condition. Advised to follow up with hepatic a physician in 2-3 days. More than 35 minutes spent towards the discharge of the patient. Patient Condition at Discharge: Serious Plan - Discharge Summary New Discharge Prescriptions: No Action Metoprolol Tartrate [Lopressor] 100 mg PO BID Citalopram Hydrobromide [CeleXA] 20 mg PO QAM Aspirin 81 mg PO DAILY Clobetasol Propionate [Temovate 0.05% Cream] 1 applic TOPICAL BID Lisinopril-Hctz 20-25 mg [Zestoretic 20-25] 1 tab PO DAILY Atorvastatin [Lipitor] 80 mg PO HS #90 tab Nitroglycerin Sl Tabs [Nitrostat] 0.4 mg SUBLINGUAL Q5M PRN #25 tab PRN Reason: Chest Pain Clopidogrel [Plavix] 75 mg PO DAILY #90 tab Discharge Medication List Aspirin 81 mg PO DAILY 09/09/14 [History] Citalopram Hydrobromide [CeleXA] 20 mg PO QAM 09/09/14 [History] Metoprolol Tartrate [Lopressor] 100 mg PO BID 09/09/14 [History] Clobetasol Propionate [Temovate 0.05% Cream] 1 applic TOPICAL BID 03/16/19 [History] Lisinopril-Hctz 20-25 mg [Zestoretic 20-25] 1 tab PO DAILY 03/20/19 [History] Atorvastatin [Lipitor] 80 mg PO HS #90 tab 03/21/19 [Rx] Clopidogrel [Plavix] 75 mg PO DAILY #90 tab 03/21/19 [Rx] Nitroglycerin Sl Tabs [Nitrostat] 0.4 mg SUBLINGUAL Q5M PRN #25 tab 03/21/19 [Rx] Follow up Appointment(s)/Referral(s): Kimber Salinas MD [Primary Care Provider] - 1-2 days
--- NOTE | 2019-03-25 12:50 | PN ---
PROGRESS NOTE Ms. Perez is a 63-year-old female status post recent recanalization of totally occluded LAD, history of prior smoking, hypertension. She presented with symptoms of nausea and vomiting, was noted to be hyponatremic. She is feeling much better today. Her breathing is stable. She is ambulating without difficulty. She denies any dizziness or palpitation. She continues to be on aspirin once a day Lipitor 80 mg daily, Plavix 75 mg daily, Zestril 10 mg twice a day, metoprolol tartrate 100 mg twice a day. PHYSICAL EXAMINATION: VITAL SIGNS: Blood pressure 134/60 with a heart rate in 60s. LUNGS: Clear. Mild decrease in breath sounds. No wheezes. HEART: Regular rate and rhythm S1, S2. No S3. No rub. ABDOMEN: Soft and nontender. EXTREMITIES: No edema. LAB DATA: Sodium 138, BUN and creatinine 6 and 0.56. IMPRESSION: 1. Hyponatremia, resolved, etiology unclear. 2. Nausea and vomiting, resolved. 3. Coronary artery disease, status post stenting of the LAD, stable. 4. Hypertension. 5. Prior history of smoking, patient stopped smoking last week. RECOMMENDATIONS: She will continue present therapy, she will be discharged home today. We will continue to hold her hydrochlorothiazide and she will be seen in the office as scheduled on . MMODL / IJN: [id number] /
== END 2019-03-25 13:23 | disposition home or self-care (01) | DRG 641 ==
LOC: EC 20:04 → 4SSUR 03-24 00:10
PROVIDERS: ADMIT Internal Medicine; ATTEND Internal Medicine
DX: E87.1 Hypo-osmolality and hyponatremia (principal); E78.5 Hyperlipidemia, unspecified; E86.1 Hypovolemia; F17.210 Nicotine dependence, cigarettes, uncomplicated; F41.9 Anxiety disorder, unspecified; I10 Essential (primary) hypertension; I25.10 Atherosclerotic heart disease of native coronary artery without angina pectoris; Z79.02 Long term (current) use of antithrombotics/antiplatelets; Z79.82 Long term (current) use of aspirin; Z79.899 Other long term (current) drug therapy; Z95.5 Presence of coronary angioplasty implant and graft; R11.0 Nausea
CPT/HCPCS: 36415; 80048; 80053; 81003; 82150; 82533; 82570; 83690; 83935; 84443; 84484; 84540; 84550; 85025; 93005; 96361; 96374; 99285

== ENCOUNTER → 2019-05-17 | Outpatient (CLI) | payer BC ==
--- NOTE | 2019-05-17 17:47 | CTL ---
EXAMINATION TYPE: CT Low Dose Lung DATE OF EXAM ORDERED: 05/17/2019 HISTORY: . Lung cancer screening CT DLP: 30.[address] CTDI: 2.2 mGy Automated exposure control for dose reduction was used. SCREENING VISIT: Subsequent COMPARISON: 02/14/2019 TECHNIQUE: Low dose computed tomography scan was performed through the chest at 1 mm thick sections a nd reconstructed images in the coronal plane at [address] DIAGNOSTIC QUALITY: Satisfactory FINDINGS: LUNG NODULES: None. There is a 0.5 cm pleural-based nodule within the posterior medial right lung base. Series 4 image 22 2. The area of lingular atelectasis may be present just above the left diaphragm. Example image series 4 image 190. There is a pleural-based nodule measuring 0.6 cm in the posterior right midlung. Series 4 image 153. This is increasing from comparison. There is a 0.7 cm nodule within the mid peripheral right midlung. This may be 1 mm larger than compar sabas. Consider PET CT for additional evaluation. Some infiltrate or density may be adjacent to the mediastinal border on the lingular site measuring a pproximately 1.7 x 2.0 cm. This is a new finding. Atelectasis and pneumonia could be considered. Foll ow-up is recommended. LUNGS: COPD: Severity: Mild Fibrosis: Severity: None Lymph nodes: None Other findings: None RIGHT PLEURAL SPACE: Effusion: None Calcification: None Thickening: None Pneumothorax: None LEFT PLEURAL SPACE: Effusion: None Calcification: None Thickening: None Pneumothorax: None HEART: Heart Size: Normal Coronary calcification: None Pericardial effusion: None OTHER FINDINGS: Upper abdomen: Normal Bony thorax: Normal Supraclavicular region: Normal Other: Ascending thoracic aorta at the level the main pulmonary artery measures 3.5 cm. The main pulm onary artery the bifurcation measures 2.2 cm. IMPRESSION: Suspicious findings FOLLOW UP CT CHEST RECOMMENDATION: Yes. PET/CT chest for right lower lobe nodule. CT LUNG RAD: 4
== END | disposition home or self-care (01) ==
LOC: RADCTMAIN 11:04
PROVIDERS: ATTEND Family Medicine
DX: Z12.2 Encounter for screening for malignant neoplasm of respiratory organs (principal); Z87.891 Personal history of nicotine dependence

== ENCOUNTER → 2019-07-03 | Outpatient (CLI) | payer BC ==
[2019-07-03 15:40] LABS: African American GFR (CKD) 91.6 (60.0-200.0); Albumin 4.4 g/dL (3.80-4.90); Albumin/Globulin Ratio 2.32 (1.60-3.17); Anion Gap 7.9 mmol/L (4.00-12.00); BUN/Creat Ratio 18.75 Ratio (12.00-20.00); Calcium 9.8 mg/dL (8.7-10.3); Carbon Dioxide 27.1 mmol/L (21.6-31.8); Chol/HDL Ratio 2.43; Globulin 1.9 g/dL (1.6-3.3); LDL Cholesterol,Calculated 65.8 mg/dL (0.0-131.0); Potassium 4.7 mmol/L (3.5-5.5); Total Bilirubin 0.4 mg/dL (0.3-1.2); Total Protein 6.3 g/dL (6.2-8.2); VLDL Calculation 17.2 mg/dL (5.00-40.00)
== END | disposition home or self-care (01) ==
LOC: LABWHC1 10:12
PROVIDERS: ATTEND Internal Medicine Interventional Cardiology
DX: E78.2 Mixed hyperlipidemia (principal)
CPT/HCPCS: 36415; 80053; 80061

== ENCOUNTER → 2019-07-25 | Outpatient (CLI) | payer BC ==
[2019-07-25 16:51] LABS: ALT 20 U/L (8-44); AST 23 U/L (13-35); Alkaline Phosphatase 140 U/L (41-126)
== END | disposition home or self-care (01) ==
LOC: LABWHC1 10:28
PROVIDERS: ATTEND Internal Medicine Interventional Cardiology
DX: E78.2 Mixed hyperlipidemia (principal)
CPT/HCPCS: 36415; 84075; 84450; 84460

== ENCOUNTER → 2019-11-29 | Outpatient (CLI) | payer BC ==
[2019-11-29 16:35] LABS: African American GFR (CKD) 107.6 (60.0-200.0); Albumin 4.5 g/dL (3.80-4.90); Albumin/Globulin Ratio 2.37 (1.60-3.17); Anion Gap 8.2 mmol/L (4.00-12.00); BUN/Creat Ratio 15.71 Ratio (12.00-20.00); Calcium 9.8 mg/dL (8.7-10.3); Carbon Dioxide 27.8 mmol/L (21.6-31.8); Chol/HDL Ratio 4.33; Globulin 1.9 g/dL (1.6-3.3); Non-African American GFR(CKD) 92.9 (60.0-200.0); Potassium 4.3 mmol/L (3.5-5.5); Total Bilirubin 0.5 mg/dL (0.2-1.2); Total Protein 6.4 g/dL (6.2-8.2)
== END | disposition home or self-care (01) ==
LOC: LABWHC1 09:59
PROVIDERS: ATTEND Internal Medicine Interventional Cardiology
DX: E78.2 Mixed hyperlipidemia (principal)
CPT/HCPCS: 36415; 80053; 80061

== ENCOUNTER → 2020-01-18 | Outpatient (CLI) | payer BC ==
[2020-01-18 16:20] LABS: Albumin 4.6 g/dL (3.80-4.90); Albumin/Globulin Ratio 2.19 (1.60-3.17); Bilirubin, Conjugated 0.2 mg/dL (0.20-0.40); Bilirubin,Unconjugated 0.4 mg/dL; Chol/HDL Ratio 2.59; Globulin 2.1 g/dL (1.6-3.3); Total Bilirubin 0.6 mg/dL (0.3-1.2); Total Protein 6.7 g/dL (6.2-8.2)
== END | disposition home or self-care (01) ==
LOC: LABWHC1 10:10
PROVIDERS: ATTEND Nurse Practitioner Adult Health
DX: E78.2 Mixed hyperlipidemia (principal)
CPT/HCPCS: 36415; 80061; 80076

== ENCOUNTER → 2020-08-22 | Outpatient (CLI) | payer BC ==
[2020-08-22 17:44] LABS: African American GFR (CKD) 90.9 (60.0-200.0); Albumin 4.3 g/dL (3.80-4.90); Albumin/Globulin Ratio 2.05 (1.60-3.17); BUN/Creat Ratio 13.75 Ratio (12.00-20.00); Calcium 9.8 mg/dL (8.7-10.3); Chol/HDL Ratio 2.82; Globulin 2.1 g/dL (1.6-3.3); LDL Cholesterol,Calculated 66.6 mg/dL (0.0-131.0); Non-African American GFR(CKD) 78.5 (60.0-200.0); Potassium 4.6 mmol/L (3.5-5.5); Total Bilirubin 0.6 mg/dL (0.2-1.2); Total Protein 6.4 g/dL (6.2-8.2); VLDL Calculation 24.4 mg/dL (5.00-40.00)
== END | disposition home or self-care (01) ==
LOC: LABWHC1 10:55
PROVIDERS: ATTEND Internal Medicine Interventional Cardiology
DX: E78.2 Mixed hyperlipidemia (principal)
CPT/HCPCS: 36415; 80053; 80061

== ENCOUNTER 2021-02-10 07:37 | Day surgery (SDC) | payer BC ==
[2021-02-05 13:40] VITALS: BMI 28.3
[~2021-02-10 07:37] MED LIST: LACTATED RINGERS 1,000 ML IV SCH; LIDOCAINE 1% (10MG/ML) FOR IV START INTRADERMA PRN
[2021-02-10 07:53] VITALS: TEMP 97.8
[2021-02-10] MEDS ORDERED: LACTATED RINGERS 1,000 ML IV ONE (07:53)
[2021-02-10] MEDS ORDERED: PROPOFOL 10 MG/ML 20 ML VIAL IV ONE (08:30)
[2021-02-10] MEDS ORDERED: LIDOCAINE 1% INJ 10MG/ML (20 ML MDV) ONE (08:30)
--- NOTE | 2021-02-10 08:31 | P.GSHP ---
History of Present Illness H&P Date: 02/10/21 Chief Complaint: colon cancer screening 4 colonoscopy. Last colonoscopy 2013. Patient had a small rectal polyp at that time which was hyperplastic. No recent change in bowel habits. No family history of colon cancer. Past Medical History Past Medical History: Hyperlipidemia, Hypertension, Skin Disorder Additional Past Medical History / Comment(s): LICHEN SCLEROSIS History of Any Multi-Drug Resistant Organisms: None Reported Past Surgical History: Adenoidectomy, Bladder Surgery, Heart Catheterization With Stent, Tonsillectomy Additional Past Surgical History / Comment(s): EYE SX A CHILD. BENIGN LUMP REMOVED FROM RIGHT SIDE OF NECK. BENIGN RT BREAST MASS REMOVED. COLONOSCOPY Past Anesthesia/Blood Transfusion Reactions: No Reported Reaction Date of Last Stent Placement:: 03/20/19 Smoking Status: Former smoker - Past Family History Father Family Medical History: Cancer Medications and Allergies Home Medications Medication Instructions Recorded Confirmed Type Aspirin 81 mg PO DAILY 09/09/14 02/05/21 History Citalopram Hydrobromide [CeleXA] 20 mg PO QAM 09/09/14 02/05/21 History Metoprolol Tartrate [Lopressor] 100 mg PO BID 09/09/14 02/05/21 History Clobetasol Propionate [Temovate 1 applic TOPICAL BID 03/16/19 02/05/21 History 0.05% Cream] Atorvastatin [Lipitor] 80 mg PO HS #90 tab 03/21/19 02/05/21 Rx Nitroglycerin Sl Tabs [Nitrostat] 0.4 mg SUBLINGUAL Q5M PRN #25 tab 03/21/19 02/05/21 Rx lisinopriL [Zestril] 10 mg PO BID #60 tab 03/25/19 02/05/21 Rx amLODIPine [Norvasc] 10 mg PO 1200 02/05/21 02/05/21 History Allergies Allergy/AdvReac Type Severity Reaction Status Date / Time No Known Allergies Allergy Verified 02/05/21 13:31 Surgical - Exam Vital Signs Temp Pulse Resp BP Pulse Ox 97.8 F 88 18 169/80 94 L 02/10/21 07:52 02/10/21 07:52 02/10/21 07:52 02/10/21 07:52 02/10/21 07:52 Physical exam: General: Well-developed, well-nourished HEENT: Normocephalic, sclerae nonicteric Abdomen: Nontender, nondistended Extremities: No edema Neuro: Alert and oriented Assessment and Plan (1) Colon cancer screening Narrative/Plan: Will proceed with colonoscopy at this time Current Visit: No Status: Acute Code(s): Z12.11 - ENCOUNTER FOR SCREENING FOR MALIGNANT NEOPLASM OF COLON SNOMED Code(s): 876784570
--- NOTE | 2021-02-10 08:45 | P.PCN ---
Date of Procedure: 02/10/21 Procedure(s) Performed: PREOPERATIVE DIAGNOSIS: Screening POSTOPERATIVE DIAGNOSIS: Normal exam PROCEDURE: Colonoscopy ANESTHESIA: MAC SURGEON: Claudy Salinas M.D. SPECIMENS: None ENDOSCOPIC PROCEDURE: The patient was placed on the endoscopy table in the left decubitus position. The Olympus colonoscope was inserted into the anus and passed under direct visualization to the base of the cecum. The appendiceal orifice was visualized. From that point the scope was slowly withdrawn inspecting all surfaces carefully. There were no neoplastic inflammatory or polypoid lesions throughout the cecum, ascending, transverse, descending, sigmoid and rectum. There was no visible diverticulosis noted. Digital rectal examination was normal. The patient was taken to the recovery room in stable condition per anesthesia guidelines. RECOMMENDATIONS: Resume diet. Follow-up colonoscopy 10 years.
[2021-02-10 08:55] VITALS: RESP 16
[2021-02-10 09:12] VITALS: BP 134/79; PULSE 57
== END 2021-02-10 09:34 | disposition home or self-care (01) ==
LOC: ORWHC2ENDO 07:37
PROVIDERS: ATTEND Surgery
DX: Z12.11 Encounter for screening for malignant neoplasm of colon (principal); Z86.010 Personal history of colon polyps; E78.5 Hyperlipidemia, unspecified; I10 Essential (primary) hypertension; L90.0 Lichen sclerosus et atrophicus; I25.10 Atherosclerotic heart disease of native coronary artery without angina pectoris; F17.210 Nicotine dependence, cigarettes, uncomplicated; F32.9 Major depressive disorder, single episode, unspecified; Z98.890 Other specified postprocedural states; Z90.89 Acquired absence of other organs; Z95.5 Presence of coronary angioplasty implant and graft; Z79.82 Long term (current) use of aspirin; Z79.899 Other long term (current) drug therapy; Z79.52 Long term (current) use of systemic steroids; Z97.2 Presence of dental prosthetic device (complete) (partial); Z80.9 Family history of malignant neoplasm, unspecified
CPT/HCPCS: J2001; J2704; G0105; 45378

== ENCOUNTER → 2021-03-09 | Outpatient (CLI) | payer BC ==
--- NOTE | 2021-03-09 09:37 | BD ---
EXAMINATION TYPE: Axial Bone Density DATE OF EXAM: 03/09/2021 COMPARISON: 03/06/2019 CLINICAL HISTORY: Height: 62 IN Weight: 158 LBS FRAX RISK QUESTIONS: Current Tobacco Use: YES RISK FACTORS HISTORY OF: Active: YES Diet low in dairy products/other sources of calcium: YES Postmenopausal woman: AGE 50 MEDICATIONS: Additional Medications: HIGH BLOOD PRESSURE MEDS, CHOLESTEROL MEDS, ASPIRIN, LIPITOR, CELEXA, METOPRO LOL, LISINOPRIL, AMLODIPINE EXAM MEASUREMENTS: Bone mineral densitometry was performed using the [employer] System. Bone mineral density as measured about the Lumbar spine is: ----- L1-L4(G/cm2): 1.075 T Score Values are as follows: ----- L2: -1.3 ----- L3: -0.9 ----- L4: -0.2 ----- L1-L4: -0.9 Bone mineral density has: Decreased -1.1% since study of: 03/06/2019 Bone mineral density about the R hip (g/cm2): 0.710 Bone mineral density about the L hip (g/cm2): 0.661 T Score values are as follows: -----R Neck: -2.3 -----L Neck: -2.7 -----R Total: -2.3 -----L Total: -1.9 Bone mineral density has: Decreased -3.0% since study of: 03/06/2019 IMPRESSION: Osteopenia (T Score between -2.5 and -1). There is slightly increased risk of fracture and the patient may be considered for treatment. Re-Screen 2-5 years. NOTE: T-SCORE=SD OF THE YOUNG ADULT MEAN.
--- NOTE | 2021-03-10 11:34 | MM ---
Reason for exam: screening (asymptomatic). Last mammogram was performed 2 years ago. History: Patient is postmenopausal. Benign excisional biopsy of the right breast, 1992. Took hormonal contraceptives for 5 years beginning at age 20. Physical Findings: A clinical breast exam by your physician is recommended on an annual basis and results should be correlated with mammographic findings. MG Screening Mammo w CAD Bilateral CC and MLO view(s) were taken. Prior study comparison: March 06, 2019, bilateral MG screening mammo w CAD. November 05, 2016, bilateral MG screening mammo w CAD. The breast tissue is extremely dense which could obscure a lesion on mammography. Stable benign calcifications. There is chronic nodularity in the left breast. No significant changes when compared with prior studies. ASSESSMENT: Benign, BI-RAD 2 RECOMMENDATION: Routine screening mammogram of both breasts in 1 year.
== END | disposition home or self-care (01) ==
LOC: RADMAMWWP 08:19
PROVIDERS: ATTEND Family Medicine
DX: Z12.31 Encounter for screening mammogram for malignant neoplasm of breast (principal); Z78.0 Asymptomatic menopausal state; M85.80 Other specified disorders of bone density and structure, unspecified site
CPT/HCPCS: 77067; 77080

== ENCOUNTER → 2021-03-24 | Outpatient (CLI) | payer BC ==
[2021-03-24 18:19] LABS: Chol/HDL Ratio 3.24; LDL Cholesterol,Calculated 81.6 mg/dL (0.0-131.0); VLDL Calculation 19.4 mg/dL (5.00-40.00)
== END | disposition home or self-care (01) ==
LOC: LABWHC1 10:02
PROVIDERS: ATTEND Internal Medicine Interventional Cardiology
DX: E78.2 Mixed hyperlipidemia (principal)
CPT/HCPCS: 36415; 80061; 84450; 84460

== ENCOUNTER 2021-04-03 06:32 | Day surgery (SDC) | payer BC ==
[2021-04-01 11:26] VITALS: BMI 27.4
[2021-04-03 06:55] VITALS: RESP 16; TEMP 98.1
[2021-04-03] MEDS ORDERED: SODIUM CHLORIDE 0.9% 500 ML 500 ML IV ONE (06:57)
[2021-04-03] MEDS ORDERED: fentaNYL (PF) 50 MCG/ML 2 ML AMP ONE (07:21)
[2021-04-03] MEDS: BENZOCAINE SPRAY 1 CAN MUCOUS MEM ONE ×2 (07:25→07:37)
[2021-04-03] MEDS ORDERED: MIDAZOLAM 2 MG/2 ML VIAL IVP ONE (07:37)
[2021-04-03] MEDS ORDERED: fentaNYL (PF) 50 MCG/ML 2 ML AMP IVP ONE (07:37)
[2021-04-03] MEDS ORDERED: SODIUM CHLORIDE 0.9% 1,000 ML IV SCH (08:00)
[2021-04-03] MEDS ORDERED: NITROGLYCERIN SL TABS 0.4 MG TAB SUBLINGUAL PRN (08:01)
[2021-04-03 08:44] VITALS: PULSE 55
[2021-04-03 08:45] VITALS: BP 119/56
[2021-04-03] MEDS ORDERED: amLODIPine 10 MG TAB PO SCH (12:00)
--- NOTE | 2021-04-03 12:01 | ECHOT ---
TRANSESOPHAGEAL ECHOCARDIOGRAM INDICATIONS: Evaluation of mitral valve. CLINICAL INFORMATION: After explaining the procedure to the patient, its risks and the complications, her blood pressure, heart rate, O2 saturation was monitored. The throat was sprayed with Cetacaine. She received 2 mg intravenous Versed, 50 mcg intravenous fentanyl. The probe was introduced in the esophagus without difficulty. Images were obtained. Following that, the probe was removed. There was no immediate complication. FINDINGS: Left atrial size is mildly dilated. Left atrial appendage is normal. Left ventricular size and systolic function normal. The aortic valve revealed fibrocalcific change with aortic cusp with preserved opening. Mitral valve revealed mild thickening of the mitral valve leaflets. There was a mass attached to the tip of the anterior mitral valve leaflets measuring 0.8 cm in diameter that could represent a healed vegetation, the possibility of calcified chordae cannot be totally excluded. The tricuspid valve is normal. Descending thoracic aorta revealed mild atherosclerotic changes. No pericardial effusion was noted. Contrast bubble study revealed no shunting across the interatrial septum. Doppler pulse wave and color Doppler images were obtained revealed mild aortic with mild to moderate mitral and mild tricuspid regurgitation. There was no shunting by color Doppler study. CONCLUSION: 1. Mildly dilated left atrium. 2. Normal ventricular size and systolic function. 3. An echogenic area measuring 0.8 cm in diameter was noted attached to the tip of the anterior mitral valve leaflet that could represent a healed vegetation although the possibility of a detached chordae calcified cannot be totally excluded. There was [id number] mitral regurgitation, central. 4. Mild tricuspid regurgitation and aortic regurgitation. 5. Mild atherosclerotic changes of the descending thoracic aorta and mild fibrocalcific changes of the aortic valve. 6. No shunting across the interatrial septum. MMODL / IJN: [id number] /
[2021-04-03] MEDS ORDERED: METOPROLOL TARTRATE 50 MG TAB PO SCH (21:00)
[2021-04-03] MEDS ORDERED: lisinopriL 20 MG TAB PO SCH (21:00)
[2021-04-03] MEDS ORDERED: CLOBETASOL PROP 0.05% CR 15GM TOPICAL SCH (21:00)
[2021-04-03] MEDS ORDERED: ATORVASTATIN 40 MG TAB PO SCH (21:00)
[2021-04-04] MEDS ORDERED: CITALOPRAM HYDROBROMIDE 20 MG TAB PO SCH (09:00)
[2021-04-04] MEDS ORDERED: ASPIRIN 81 MG PO SCH (09:00)
== END 2021-04-03 09:00 | disposition home or self-care (01) ==
LOC: CATHCVL 06:32
PROVIDERS: ATTEND Internal Medicine Interventional Cardiology
DX: I08.3 Combined rheumatic disorders of mitral, aortic and tricuspid valves (principal); I70.0 Atherosclerosis of aorta; I10 Essential (primary) hypertension; E78.5 Hyperlipidemia, unspecified; F17.210 Nicotine dependence, cigarettes, uncomplicated; Z79.82 Long term (current) use of aspirin; Z79.899 Other long term (current) drug therapy; Z95.5 Presence of coronary angioplasty implant and graft; E78.00 Pure hypercholesterolemia, unspecified; J44.9 Chronic obstructive pulmonary disease, unspecified
CPT/HCPCS: 93312; 93325; J2250; J3010

== ENCOUNTER → 2021-09-14 | Outpatient (CLI) | payer BC ==
[2021-09-14 19:57] LABS: Basophils % (A) 0.9 %; Eosinophils # (A) 0.54 X 10*3/uL (0.04-0.35); HCT 52.6 % (37.2-46.3); HGB 17.1 g/dL (12.0-15.0); Lymphocytes % (A) 14.7 %; MCH 31.4 pg (27.0-32.0); MCHC 32.5 g/dL (32.0-37.0); MCV 96.7 fL (80.0-97.0); Mean Platelet Volume 10.5 fL (9.5-12.2); Monocytes # (A) 0.87 X 10*3/uL (0.20-1.00); Neutrophils # (A) 7.71 X 10*3/uL (1.80-7.70); Platelet Count 539 X 10*3/uL (140-440); RBC 5.44 X 10*6/uL (4.10-5.20); WBC 10.86 X 10*3/uL (4.50-10.00)
[2021-09-14 20:44] LABS: African American GFR (CKD) 90.3 (60.0-200.0); Albumin 4.6 g/dL (3.8-4.9); Albumin/Globulin Ratio 2.19 (1.60-3.17); BUN/Creat Ratio 14.88 Ratio (12.00-20.00); Blood Urea Nitrogen 11.9 mg/dL (9.0-27.0); Chol/HDL Ratio 2.9 Ratio; Globulin 2.1 g/dL (1.6-3.3); Non-African American GFR(CKD) 77.9 (60.0-200.0); Potassium 5.7 mmol/L (3.5-5.5); Total Bilirubin 0.4 mg/dL (0.30-1.20); Total Protein 6.7 g/dL (6.2-8.2)
== END | disposition home or self-care (01) ==
LOC: LABWHC1 09:18
PROVIDERS: ATTEND Internal Medicine Interventional Cardiology
DX: Z13.29 Encounter for screening for other suspected endocrine disorder (principal); M85.9 Disorder of bone density and structure, unspecified; I10 Essential (primary) hypertension; E78.2 Mixed hyperlipidemia
CPT/HCPCS: 36415; 80053; 80061; 82306; 84443; 85025

== ENCOUNTER → 2021-09-30 | Outpatient (CLI) | payer BC ==
[2021-09-30 17:27] LABS: African American GFR (CKD) 94.3 (60.0-200.0); Anion Gap 15.3 mmol/L (10.00-18.00); BUN/Creat Ratio 13.47 Ratio (12.00-20.00); Blood Urea Nitrogen 10.4 mg/dL (9.0-27.0); Calcium 9.7 mg/dL (8.7-10.3); Carbon Dioxide 22.2 mmol/L (20.0-27.5); Non-African American GFR(CKD) 81.3 (60.0-200.0); Potassium 5.3 mmol/L (3.5-5.5)
== END | disposition home or self-care (01) ==
LOC: LABWHC1 08:00
PROVIDERS: ATTEND Nurse Practitioner Adult Health
DX: I10 Essential (primary) hypertension (principal)
CPT/HCPCS: 36415; 80048

== ENCOUNTER → 2022-01-21 | Outpatient (CLI) | payer BC ==
--- NOTE | 2022-01-22 07:31 | CTL ---
EXAMINATION TYPE: CT Low Dose Lung DATE OF EXAM ORDERED: 01/21/2022 HISTORY: Long-term tobacco use. Lung cancer screening CT DLP: 76.[address] CTDI: 2.0 mGy Automated exposure control for dose reduction was used. SCREENING VISIT: Second after baseline COMPARISON: Prior studies 2019 TECHNIQUE: Low dose computed tomography scan was performed through the chest at 1 mm thick sections a nd reconstructed images in multiple planes at 1 mm and [address] DIAGNOSTIC QUALITY: Satisfactory FINDINGS: LUNG NODULES: Present, detailed below: A 6 x 6 mm superior right lower lobe nodule axial image 161 is stable from 2019 presumed benign. Occa sional scattered micronodules. Stable 4 mm subpleural right lower lobe nodule axial image 226 presume d benign. No new Greater than 5 mm noncalcified pulmonary nodules LUNGS: COPD: Severity: Mild to moderate most prominent in the upper lobes. Fibrosis: Severity: Minimal bibasilar. Lymph nodes: None Other findings: None BILATERAL PLEURAL SPACE: Effusion: None Calcification: None Thickening: None Pneumothorax: None HEART: Heart Size: Mildly enlarged Coronary calcification: Moderate to severe 3 vessel redemonstrated. Pericardial effusion: None OTHER FINDINGS: Upper abdomen: None Bony thorax: Mild multilevel spurring in the thoracic spine Supraclavicular region: None. Other: Moderate calcified plaque slightly ectatic descending aorta is redemonstrated. IMPRESSION: Stable small nodules. No new or enlarging greater than [address] LUNG RAD AND CT CHEST RECOMMENDATION: Lung-Rad 2 Benign Appearance or Behavior: Continue annual sc reening with LDCT in 12 months. S Modifier (other clinically significant findings): None
== END | disposition home or self-care (01) ==
LOC: RADCTMAIN 17:15
PROVIDERS: ATTEND Internal Medicine Hematology & Oncology
DX: Z12.2 Encounter for screening for malignant neoplasm of respiratory organs (principal); R91.8 Other nonspecific abnormal finding of lung field; Z87.891 Personal history of nicotine dependence
CPT/HCPCS: 71271

== ENCOUNTER → 2022-03-11 | Outpatient (CLI) | payer BC ==
--- NOTE | 2022-03-12 13:54 | MM ---
Reason for exam: screening (asymptomatic). Last mammogram was performed 1 year ago. History: Patient is postmenopausal. Benign excisional biopsy of the right breast, 1992. Took hormonal contraceptives for 5 years beginning at age 20. Physical Findings: A clinical breast exam by your physician is recommended on an annual basis and results should be correlated with mammographic findings. MG Screening Mammo w CAD Bilateral CC and MLO view(s) were taken. Prior study comparison: March 09, 2021, bilateral MG screening mammo w CAD. March 06, 2019, bilateral MG screening mammo w CAD. The breast tissue is heterogeneously dense. This may lower the sensitivity of mammography. There is no discrete abnormality. No significant changes when compared with prior studies. ASSESSMENT: Negative, BI-RAD 1 RECOMMENDATION: Routine screening mammogram of both breasts in 1 year.
== END | disposition home or self-care (01) ==
LOC: RADMAMWWP 10:05
PROVIDERS: ATTEND Family Medicine
DX: Z12.31 Encounter for screening mammogram for malignant neoplasm of breast (principal); Z78.0 Asymptomatic menopausal state
CPT/HCPCS: 77067

== ENCOUNTER → 2022-05-20 | Outpatient (CLI) | payer MEDICARE ==
[2022-05-20 18:34] LABS: ALT 22 U/L (8-44); AST 21 U/L (13-35); Albumin 4.3 g/dL (3.8-4.9); Albumin/Globulin Ratio 1.95 (1.60-3.17); Alkaline Phosphatase 147 U/L (41-126); BUN/Creat Ratio 24.76 Ratio (12.00-20.00); Blood Urea Nitrogen 18.1 mg/dL (9.0-27.0); Calcium 9.3 mg/dL (8.7-10.3); Carbon Dioxide 25.1 mmol/L (20.0-27.5); Chloride 104 mmol/L (96-109); Chol/HDL Ratio 2.69 Ratio; Globulin 2.2 g/dL (1.6-3.3); Glucose 93 mg/dL (70-110); LDL Cholesterol,Calculated 69.6 mg/dL (0.0-131.0); Non-African American GFR(CKD) 86.3 (60.0-200.0); Potassium 4.1 mmol/L (3.5-5.5); Sodium 139 mmol/L (135-145); Total Protein 6.5 g/dL (6.2-8.2); VLDL Calculation 19.04 mg/dL (5.00-40.00)
== END | disposition home or self-care (01) ==
LOC: LABWHC1 10:38
PROVIDERS: ATTEND Internal Medicine Interventional Cardiology
DX: E78.2 Mixed hyperlipidemia (principal)
CPT/HCPCS: 36415; 80053; 80061

== ENCOUNTER → 2023-01-24 | Outpatient (CLI) | payer MEDICARE ==
--- NOTE | 2023-01-24 12:58 | CTL ---
EXAMINATION TYPE: CT Low Dose Lung DATE OF EXAM ORDERED: 01/24/2023 HISTORY: 67-year-old female Z87.891, personal history of nicotine dependence. Current smoker with 43 pack-year history. Lung cancer screening CT DLP: 88.[address] CTDI: 2.4 mGy Automated exposure control for dose reduction was used. SCREENING VISIT: Annual exam COMPARISON: 01/21/2022, 02/14/2019 TECHNIQUE: Low dose computed tomography scan was performed through the chest with coronal and sagitta l reconstructions. CT DIAGNOSTIC QUALITY: Satisfactory FINDINGS: The heart is upper limits of normal in size without pericardial effusion. Three-vessel coronary arter y calcifications are present and there are marker for coronary artery disease. 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 Moderate atherosclerotic a rch calcifications with conventional arch vessel branching anatomy. Scattered nonenlarged mediastinal lymph nodes are present. No thoracic lymphadenopathy by CT size cri teria. There is moderate centrilobular emphysema. Mild mosaic attenuation suggesting small airways disease a long with mild bronchial wall thickening. There is an 8 mm posterior right midlung pulmonary nodule previously measured 7 mm. We note that 8 me asured 7 mm back in 2019 as well. 4 mm subpleural nodularity posterior right midlung, axial image 155 unchanged. Since scattered strandy scarring or atelectasis on both sides. No consolidation or pleural effusion. Tiny hiatal hernia. Otherwise, visualized upper abdomen shows a stable cortical lobulation posterior left kidney measuring 1.5 cm, probable underlying renal cyst. Mild thickening of the right adrenal gl and without discrete nodularity is unchanged. Bones: No osseous destructive process. IMPRESSION: 1. LungRADS 2, benign. An 8 mm posterior right midlung pulmonary nodule. Relatively unchanged from 7 mm back to 2019. 2. COPD with moderate emphysema. Recommend smoking cessation. CT LUNG RAD AND CT CHEST RECOMMENDATION: Lung-Rad 2 Benign Appearance or Behavior: Continue annual sc reening with LDCT in 12 months.
== END | disposition home or self-care (01) ==
LOC: RADCTMAIN 10:45
PROVIDERS: ATTEND Internal Medicine Hematology & Oncology
DX: Z12.2 Encounter for screening for malignant neoplasm of respiratory organs (principal); J43.2 Centrilobular emphysema; F17.210 Nicotine dependence, cigarettes, uncomplicated; R91.1 Solitary pulmonary nodule
CPT/HCPCS: 71271

== ENCOUNTER → 2023-04-29 | Outpatient (CLI) | payer MEDICARE ==
[2023-04-29 15:35] LABS: ALT 22 U/L (8-44); AST 17 U/L (13-35); Albumin 4.5 d/dL (3.8-4.9); Albumin/Globulin Ratio 2.05 Ratio (1.60-3.17); Alkaline Phosphatase 137 U/L (41-126); Blood Urea Nitrogen 12.6 mg/dL (9.0-27.0); Calcium 9.6 mg/dL (8.7-10.3); Carbon Dioxide 26.4 mmol/L (21.6-31.8); Chloride 105 mmol/L (96-109); Chol/HDL Ratio 2.68 Ratio; Globulin 2.2 d/dL (1.6-3.3); Glucose 81 mg/dL (70-110); LDL Cholesterol,Calculated 68.1 mg/dL (0.0-131.0); Potassium 4.3 mmol/L (3.5-5.5); Sodium 141 mmol/L (135-145); Total Bilirubin 0.3 mg/dL (0.3-1.2); Total Protein 6.7 d/dL (6.2-8.2)
== END | disposition home or self-care (01) ==
LOC: LABWHC1 10:03
PROVIDERS: ATTEND Internal Medicine Interventional Cardiology
DX: E78.2 Mixed hyperlipidemia (principal)
CPT/HCPCS: 36415; 80053; 80061

== ENCOUNTER → 2023-11-18 | Outpatient (CLI) | payer MEDICARE ==
[2023-11-18 14:37] LABS: ALT 20 U/L (8-44); AST 17 U/L (13-35); Albumin 4.3 g/dL (3.8-4.9); Albumin/Globulin Ratio 1.87 Ratio (1.60-3.17); Alkaline Phosphatase 128 U/L (41-126); BUN/Creat Ratio 16.12 Ratio (12.00-20.00); Blood Urea Nitrogen 12.9 mg/dL (9.0-27.0); Calcium 9.5 mg/dL (8.7-10.3); Carbon Dioxide 26.8 mmol/L (21.6-31.8); Chloride 105 mmol/L (96-109); Chol/HDL Ratio 2.85 Ratio; Globulin 2.3 g/dL (1.6-3.3); Glucose 86 mg/dL (70-110); LDL Cholesterol,Calculated 76.4 mg/dL (0.0-131.0); Potassium 4.5 mmol/L (3.5-5.5); Sodium 141 mmol/L (135-145); Total Bilirubin 0.4 mg/dL (0.3-1.2); Total Protein 6.6 g/dL (6.2-8.2)
== END | disposition home or self-care (01) ==
LOC: LABWHC1 11:08
PROVIDERS: ATTEND Internal Medicine Interventional Cardiology
DX: I10 Essential (primary) hypertension (principal); E78.2 Mixed hyperlipidemia
CPT/HCPCS: 36415; 80053; 80061

== ENCOUNTER → 2024-01-27 | Outpatient (CLI) | payer MEDICARE ==
--- NOTE | 2024-01-27 21:33 | CTL ---
EXAMINATION TYPE: CT Low Dose Lung DATE OF EXAM ORDERED: 01/27/2024 HISTORY: Lung cancer screening CT DLP: [address] CTDI: 2.18 mGy Automated exposure control for dose reduction was used. COMPARISON: 01/24/2023 TECHNIQUE: Low dose computed tomography scan was performed through the chest at 1 mm thick sections a nd reconstructed images in multiple planes at 1 mm and [address] DIAGNOSTIC QUALITY: Satisfactory FINDINGS: There are moderate emphysematous changes. There is a stable 8 to 9 mm right lower lobe pulmonary nodule. No new or suspicious lung mass or nodu le is seen. Is no abnormal airspace/consolidative density or abnormal interstitial density. There is no pleural effusion, pleural thickening or pneumothorax. The great vessels chest are normal and is no mediastinal, hilar or axillary adenopathy. Limited scanning through the upper abdomen reveals no gross abnormality. No focal osseous lesions are seen. IMPRESSION: 1. Lung RADS category 2 benign. Stable right lower lobe pulmonary nodule. 2. Moderate emphysematous change. 3. No acute cardiopulmonary disease.
== END | disposition home or self-care (01) ==
LOC: RADCTMAIN 12:20
PROVIDERS: ATTEND Internal Medicine Hematology & Oncology
DX: Z12.2 Encounter for screening for malignant neoplasm of respiratory organs (principal); J43.9 Emphysema, unspecified; R91.1 Solitary pulmonary nodule; F17.210 Nicotine dependence, cigarettes, uncomplicated
CPT/HCPCS: 71271

== ENCOUNTER → 2024-05-17 | Outpatient (CLI) | payer MEDICARE ==
[2024-05-17 15:15] LABS: ALT 19 U/L (8-44); AST 20 U/L (13-35); Chol/HDL Ratio 2.45 Ratio; LDL Cholesterol,Calculated 63.8 mg/dL (0.0-131.0)
== END | disposition home or self-care (01) ==
LOC: LABWHC1 10:00
PROVIDERS: ATTEND Internal Medicine Interventional Cardiology
DX: E78.2 Mixed hyperlipidemia (principal)
CPT/HCPCS: 36415; 80061; 84450; 84460

== ENCOUNTER → 2024-05-25 | Outpatient (CLI) | payer MEDICARE ==
--- NOTE | 2024-05-27 12:41 | MM ---
Reason for Exam: Screening (asymptomatic). Last mammogram was performed 1 year(s) and 2 month(s) ago. Patient History: Menarche at age 15. First Full-Term at age 27. Postmenopausal. Hormonal Contraceptives for 5 years from age 20 until age 25. 1993, Benign Excisional Biopsy on the right side. Risk Values: Cher 5 year model risk: 2.2%. NCI Lifetime model risk: 7.6%. Prior Study Comparison: 03/09/2021 Bilateral Screening Mammogram, [facility]. 03/11/2022 Bilateral Screening Mammogram, [facility]. 03/14/2023 Bilateral MG 3D screening mammo w/cad, [facility]. Tissue Density: The breasts are heterogeneously dense, which may obscure small masses. Findings: Analyzed By CAD. The pattern is symmetrical. Benign calcification is present bilaterally. Chronic nodularity is within the left breast. Within the right breast there may be a couple of rounded density with obscured margins not clearly identified previously. The more anterior measures 0.5 cm located 3 cm the nipple. The more posterior less well-visualized and measures 5 cm located 4 cm from the nipple. Additional workup is recommended. Overall Assessment: Incomplete: need additional imaging evaluation, BI-RAD 0 Management: Diagnostic Mammogram of the right breast. Diagnostic Breast Ultrasound of the right breast. A negative mammogram report should not preclude additional follow up of suspicious palpable abnormalities. Patient should continue monthly self breast exam. A clinical breast exam by your physician is recommended on an annual basis and results should be correlated with mammographic findings. Note on Hcer scores and lifetime risk: 1. A Cher score greater than 3% is considered moderate risk. If this is the case, consider specialist referral to assess eligibility for a risk reducing agent. 2. If overall lifetime risk for the development of breast cancer is 20% or higher, the patient may qualify for future screening with alternating mammogram and breast MRI. Electronically signed and approved by: Gee Jon D.O. Radiologis
== END | disposition home or self-care (01) ==
LOC: RADMAMWWP 14:30
PROVIDERS: ATTEND Family Medicine
DX: Z12.31 Encounter for screening mammogram for malignant neoplasm of breast (principal); R92.333 Mammographic heterogeneous density, bilateral breasts; Z78.0 Asymptomatic menopausal state
CPT/HCPCS: 77067

== ENCOUNTER → 2024-05-29 | Outpatient (CLI) | payer MEDICARE ==
--- NOTE | 2024-05-29 13:17 | MM ---
Reason for Exam: Additional evaluation requested from abnormal screening. Last screening mammogram was performed less than 1 month ago. Patient History: Menarche at age 15. First Full-Term at age 27. Postmenopausal. Hormonal Contraceptives for 5 years from age 20 until age 25. 1992, Benign Excisional Biopsy on the right side. Risk Values: Cher 5 year model risk: 2.2%. NCI Lifetime model risk: 7.6%. Tissue Density: Right: The breasts are heterogeneously dense, which may obscure small masses. Findings: Analyzed By CAD. Single nodule seen upper outer right breast 5 cm from the nipple measuring 5 mm in size. Ultrasound is advised. Overall Assessment: Incomplete: need additional imaging evaluation, BI-RAD 0 Management: Diagnostic Breast Ultrasound of the right breast. . Results were given to the patient verbally at the time of exam. Patient should continue monthly self-breast exams. A clinical breast exam by your physician is recommended on an annual basis. This exam should not preclude additional follow-up of suspicious palpable abnormalities. Note on Cher scores and lifetime risk: 1. A Cher score greater than 3% is considered moderate risk. If this is the case, consider specialist referral to assess eligibility for a risk reducing agent. 2. If overall lifetime risk for the development of breast cancer is 20% or higher, the patient may qualify for future screening with alternating mammogram and breast MRI. Electronically signed and approved by: Onur Lozada M.D. Radiologis
--- NOTE | 2024-05-29 13:31 | USB ---
Reason for Exam: Additional evaluation requested from abnormal screening. Patient History: Menarche at age 15. First Full-Term at age 27. Postmenopausal. Hormonal Contraceptives for 5 years from age 20 until age 25. 1993, Benign Excisional Biopsy on the right side. Risk Values: Cher 5 year model risk: 2.2%. NCI Lifetime model risk: 7.6%. Technique: Method: Targeted. Prior Study Comparison: 03/11/2022 Bilateral Screening Mammogram, [facility]. 03/14/2023 Bilateral MG 3D screening mammo w/cad, [facility]. 05/25/2024 Bilateral MG screening mammo w CAD, [facility]. Findings: The upper outer quadrant of the right breast, the axilla of the right breast and the retroareolar of the right breast were scanned. No solid masses are identified. Simple cyst at the right 9:00 position 5 cm from the nipple measuring 5 mm. Overall Assessment: Benign, BI-RAD 2 Management: Screening Mammogram of both breasts in 1 year. A clinical breast exam by your physician is recommended on an annual basis and results should be correlated with mammographic findings. This exam should not preclude additional follow-up of suspicious palpable abnormalities. Results were given to the patient verbally at the time of exam. Electronically signed and approved by: Onur Lozada M.D. Radiologis
== END | disposition home or self-care (01) ==
LOC: RADMAMWWP 12:52
PROVIDERS: ATTEND Family Medicine
DX: R92.331 Mammographic heterogeneous density, right breast (principal); R92.8 Other abnormal and inconclusive findings on diagnostic imaging of breast; Z78.0 Asymptomatic menopausal state
CPT/HCPCS: 77065; 76642; G0279; 77061

== ENCOUNTER → 2024-11-15 | Outpatient (CLI) | payer MEDICARE ==
[2024-11-15 15:14] LABS: ALT 19 U/L (8-44); AST 22 U/L (13-35); Albumin 4.3 g/dL (3.8-4.9); Albumin/Globulin Ratio 1.79 Ratio (1.60-3.17); Alkaline Phosphatase 150 U/L (41-126); BUN/Creat Ratio 17.88 Ratio (12.00-20.00); Blood Urea Nitrogen 14.3 mg/dL (9.0-27.0); Calcium 9.4 mg/dL (8.7-10.3); Carbon Dioxide 26.1 mmol/L (21.6-31.8); Chloride 105 mmol/L (96-109); Chol/HDL Ratio 2.44 Ratio; Globulin 2.4 g/dL (1.6-3.3); Glucose 83 mg/dL (70-110); LDL Cholesterol,Calculated 62.7 mg/dL (0.0-131.0); Potassium 4.5 mmol/L (3.5-5.5); Sodium 141 mmol/L (135-145); Total Bilirubin 0.5 mg/dL (0.3-1.2); Total Protein 6.7 g/dL (6.2-8.2)
== END | disposition home or self-care (01) ==
LOC: LABWHC1 10:55
PROVIDERS: ATTEND Internal Medicine Interventional Cardiology
DX: E78.2 Mixed hyperlipidemia (principal)
CPT/HCPCS: 36415; 80053; 80061

== ENCOUNTER → 2025-01-28 | Outpatient (CLI) | payer MEDICARE ==
--- NOTE | 2025-01-28 14:34 | CTL ---
EXAMINATION TYPE: CT Low Dose Lung DATE OF EXAM ORDERED: 01/28/2025 COMPARISON: Multiple CT Low Dose Lung with most recent 01/27/2024 CLINICAL INDICATION: Female, 69 years old with history of Z12.2 ENCNTR SCREEN FOR MALIGNANT NEOPLASM OF RESP; PH[facility], Current smoker 1/2 PPD x45yrs., Lung cancer screening, History of Smoking/tobacco use. TECHNIQUE: Low dose computed tomography scan was performed through the chest at 1 mm thick sections a nd reconstructed images in multiple planes at 1 mm and [address] DLP: 93.[address] CTDI: 2.6 mGy Automated exposure control for dose reduction was used. CT DIAGNOSTIC QUALITY: Satisfactory FINDINGS: Nodules: Stable right lower lobe 8 mm solid pulmonary nodule from prior CT (series 6, image 33). This as julia kary increased in size from 2019 exam when it measured up to 7 mm. Stable pleural-based right lower lobe 6 mm pulmonary nodule (series 6, image 34). Stable pleural-based right lower lobe 4 mm pulmonary nodule (series 6, image 48). No new or enlarging pulmonary nodules. LUNGS: COPD: Severity: Moderate Fibrosis: Severity: None Lymph nodes: None Other findings: None RIGHT PLEURAL SPACE: Effusion: None Calcification: None Thickening: None Pneumothorax: None LEFT PLEURAL SPACE: Effusion: None Calcification: None Thickening: None Pneumothorax: None HEART: Heart Size: Normal Coronary Calcification: Moderate Pericardial Effusion: None OTHER FINDINGS: Upper abdomen: Left renal cyst measuring up to 2.3 cm. Stable cortical lobulation posterior left kidn ey measuring up to 1.9 cm when measured with similar technique. Possibly representing a cyst. Stable nodularity of the right adrenal gland measuring up to 1.5 cm probably representing a benign adenoma. Bony thorax: None Supraclavicular region: None Other: Moderate atherosclerotic calcification of the aorta and its branches. IMPRESSION: Few right lower lobe stable pulmonary nodules. No new or enlarging pulmonary nodules from most recent CT. CT LUNG RAD AND CT CHEST RECOMMENDATION: Lung-Rad 2 Benign Appearance or Behavior: Continue annual sc reening with LDCT in 12 months. S Modifier (other clinically significant findings): None [facility], Workstation: [employer], 01/28/2025 2:32 PM
== END | disposition home or self-care (01) ==
LOC: RADCTMAIN 13:01
PROVIDERS: ATTEND Internal Medicine Hematology & Oncology
DX: Z12.2 Encounter for screening for malignant neoplasm of respiratory organs (principal); F17.210 Nicotine dependence, cigarettes, uncomplicated; R91.8 Other nonspecific abnormal finding of lung field
CPT/HCPCS: 71271

== ENCOUNTER → 2025-05-24 | Outpatient (CLI) | payer MEDICARE ==
[2025-05-24 15:31] LABS: ALT 18 U/L (8-44); AST 20 U/L (13-35); Albumin 4.4 g/dL (3.8-4.9); Albumin/Globulin Ratio 2.20 Ratio (1.60-3.17); Alkaline Phosphatase 139 U/L (41-126); Anion Gap 10.50 mmol/L (4.00-12.00); BUN/Creat Ratio 15.12 Ratio (12.00-20.00); Blood Urea Nitrogen 12.1 mg/dL (9.0-27.0); Calcium 9.4 mg/dL (8.7-10.3); Carbon Dioxide 26.5 mmol/L (21.6-31.8); Chloride 106 mmol/L (96-109); Cholesterol 135.00 mg/dL (0.00-200.00); Globulin 2.0 g/dL (1.6-3.3); Glucose 92 mg/dL (70-110); HDL Cholesterol 53.40 mg/dL (40.00-60.00); LDL Cholesterol,Calculated 61.4 mg/dL (0.0-131.0); Potassium 4.3 mmol/L (3.5-5.5); Sodium 143 mmol/L (135-145); Total Protein 6.4 g/dL (6.2-8.2); Triglycerides 101.00 mg/dL (0.00-149.00); VLDL Calculation 20.20 mg/dL (5.00-40.00)
== END | disposition home or self-care (01) ==
LOC: LABWHC1 09:36
PROVIDERS: ATTEND Internal Medicine Interventional Cardiology
DX: I10 Essential (primary) hypertension (principal); E78.2 Mixed hyperlipidemia
CPT/HCPCS: 36415; 80053; 80061